=== PATIENT | male | born 1945 | race Caucasian/White ===

== ENCOUNTER 2016-07-07 18:40 | Emergency (ER) | payer OTHER ==
[~2016-07-07] VITALS: Ht 175.3 cm; Wt 83.9 kg
[2016-07-07 18:40] VITALS: BP 164/95
[~2016-07-07 18:40] MED LIST: ADALAT CC60 MG PO; FENTANYL 1100 MCG/HR TRANSDERM; GEMFIBROZIL 60600 MG PO; LOVASTAT20 PO; OMEPRAZOLE20 M2 PO; PERCOCET 5-3251 EACH PO
== END 2016-07-07 20:13 | disposition home or self-care (01) ==
LOC: ER 18:40
DX: S61.411A Laceration without foreign body of right hand, initial encounter (principal); E78.00 Pure hypercholesterolemia, unspecified; I10 Essential (primary) hypertension; K21.9 Gastro-esophageal reflux disease without esophagitis; G89.29 Other chronic pain; I48.91 Unspecified atrial fibrillation; F17.210 Nicotine dependence, cigarettes, uncomplicated; Z98.890 Other specified postprocedural states; Z88.6 Allergy status to analgesic agent; W24.0XXA Contact with lifting devices, not elsewhere classified, initial encounter; Y93.89 Activity, other specified; Y92.89 Other specified places as the place of occurrence of the external cause; Y99.8 Other external cause status

== ENCOUNTER 2016-09-08 18:09 | Emergency (ER) | payer OTHER ==
[~2016-09-08] VITALS: Ht 175.3 cm; Wt 83.9 kg
--- NOTE | ~2016-09-08 | EKG ---
[place] [address] [facility] [place] [address] ELECTROCARDIOGRAM REPORT Name: LEYDA DUVALL [facility] #: [id number] Admission: 09/08/16 Attend Phys: Discharge: 09/08/16 Date of : 47 Report #: [id number] THIS REPORT FOR: //name// 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: : 1945 Requested By: Chris Jamison Order Number: [id number] MD: Jamie Fernandez Measurements Intervals [place] Rate: 65 P: 42 HI: 179 QRS: -12 QRSD: 94 T: 25 QT: 405 QTc: 422 Interpretive Statements Sinus rhythm Low voltage, extremity leads Compared to ECG 03/10/2011 10:38:17 Atrial fibrillation no longer present ST (T wave) deviation no longer present Electronically Signed On 09-09-2016 14:15:03 CDT by Jamie Fernandez [email or web address] <ELECTRONICALLY SIGNED> By: Jamie Fernandez MD 09/09/16 1415 1812 11 MD BONITA Medina
[2016-09-08 18:55] LABS: ABSOLUTE NEUTROPHILS 4.4 thou/uL (1.4-8.2); BASOPHILS 1.3 % (0.0-2.0); EOSINOPHILS 7.3 % (0.0-3.0); HEMATOCRIT 35.1 % (42.0-52.0); LYMPHOCYTES 32.9 % (24.0-44.0); MCH 32.5 pg (26.0-34.0); MCHC 34.3 g/dL (28.0-37.0); MCV 94.6 fL (80.0-100.0); MONOCYTES 11.9 % (1.0-8.0); PLATELET COUNT 247 thou/uL (150-400); POLYS 46.6 % (36.0-66.0); RBC 3.71 mil/uL (4.50-6.00); RDW 14.2 % (10.5-14.5); WBC 9.4 thou/uL (4.0-11.0)
[2016-09-08 18:56] LABS: MANUAL DIFF NO
[2016-09-08 19:03] LABS: ANION GAP 10 mmol/L (7-16); BUN 19 mg/dL (7-18); CHLORIDE 102 mmol/L (98-107); CO2 25 mmol/L (21-32); GLUCOSE 96 mg/dL (74-106); POTASSIUM 3.5 mmol/L (3.5-5.1); SODIUM 137 mmol/L (136-145)
[2016-09-08 19:17] LABS: NT-PRO BRAIN NAT PEPTIDE 118 pg/mL (<300); TROPONIN-I < 0.04 ng/mL (<0.04-0.07)
[2016-09-08] MEDS ORDERED: NORFLEX100 MG PO (21:16)
[2016-09-08 21:25] VITALS: BP 138/79
== END 2016-09-08 21:25 | disposition home or self-care (01) ==
LOC: ER 18:09
PROVIDERS: Emergency Medicine
DX: R07.89 Other chest pain (principal); E78.00 Pure hypercholesterolemia, unspecified; I10 Essential (primary) hypertension; K21.9 Gastro-esophageal reflux disease without esophagitis; I48.91 Unspecified atrial fibrillation; F17.210 Nicotine dependence, cigarettes, uncomplicated; Z98.890 Other specified postprocedural states; Z88.6 Allergy status to analgesic agent

== ENCOUNTER → 2017-04-16 | Outpatient (CLI) | payer OTHER ==
[~2017-04-16] MED LIST changes: +NORFLEX100 MG PO
== END ==
LOC: RAD 11:22
DX: M79.605 Pain in left leg (principal); M79.604 Pain in right leg; R60.0 Localized edema

== ENCOUNTER → 2018-04-23 | Outpatient (CLI) | payer OTHER | LOC: RAD 10:37 | DX: M48.07 Spinal stenosis, lumbosacral region (principal); R51 Headache; W19.XXXA Unspecified fall, initial encounter ==

== ENCOUNTER 2020-03-04 14:09 | Emergency (ER) | payer OTHER ==
[~2020-03-04] VITALS: Ht 177.8 cm; Wt 86.2 kg
[2020-03-04] MEDS ORDERED: ROBAXIN 750 MG750 MG PO (15:21)
[2020-03-04 15:46] VITALS: BP 152/88
== END 2020-03-04 15:46 | disposition home or self-care (01) ==
LOC: ER 14:09
DX: G89.29 Other chronic pain (principal); M54.9 Dorsalgia, unspecified; E78.00 Pure hypercholesterolemia, unspecified; I10 Essential (primary) hypertension; K21.9 Gastro-esophageal reflux disease without esophagitis; I48.91 Unspecified atrial fibrillation; F17.210 Nicotine dependence, cigarettes, uncomplicated; Z98.890 Other specified postprocedural states; Z79.899 Other long term (current) drug therapy; Z88.8 Allergy status to other drugs, medicaments and biological substances

== ENCOUNTER → 2020-09-15 | Outpatient (CLI) | payer OTHER ==
[~2020-09-15] MED LIST changes: +ROBAXIN 750 MG750 MG PO
== END ==
LOC: RAD 12:23
PROVIDERS: ATTEND Family Medicine
DX: J44.9 Chronic obstructive pulmonary disease, unspecified (principal)

== ENCOUNTER 2020-10-14 13:05 | Inpatient (IN) | payer OTHER ==
[~2020-10-14] VITALS: Ht 182.9 cm; Wt 93.0 kg
--- NOTE | ~2020-10-14 | O ---
[facility] [place] [address] OPERATIVE REPORT Name: LEYDA DUVALL Room #: 442-P [facility] IN M.R.#: [id number] Admission: 10/14/20 Attend Phys: Juan Jeronimo Mackenzie Discharge: Date of : 47 Report #: [id number] THIS REPORT FOR: cc: Jeramy Rincon MD, Rene P. MD Kneidel, Matthew T. MD ~ DATE OF SERVICE: 10/15/2020 PREOPERATIVE DIAGNOSIS: Right femoral neck fracture. POSTOPERATIVE DIAGNOSIS: Right femoral neck fracture. PROCEDURE: Right hip hemiarthroplasty. PATTERN CHECKER: Shankar Melissa MD ANESTHESIA: General. ESTIMATED BLOOD LOSS: 200 mL. DRAINS: No drains. TOURNIQUET: No tourniquets. COMPLICATIONS: No complications. DESCRIPTION OF PROCEDURE: The patient was brought to the operating room where he was placed under general anesthesia. Once under adequate general anesthesia, he was placed into a lateral decubitus position on the operative table. The patient's right lower extremity was then prepped and draped in a sterile manner. A 15 cm incision was made along the lateral aspect of the hip. This was dissected down through the soft tissue to the tensor fascia, which was then incised in line with the incision. Exposure of the posterior aspect of the hip was then achieved. Any hematoma was evacuated. The short external rotators were elevated off of the hip joint and the hip fracture was exposed, any hematoma was evacuated from the fracture itself. The femoral head was then removed with a corkscrew extractor and a size 52 mm head was sized and trialled and noted to be satisfactory. A rectangular osteotome was then used to open the femoral canal, which was then opened and reamed and broached to a size 9 cemented stem. Trial components were placed and trial reduction was excellent once complete. The femoral canal was then prepared for cementation. The cement was then placed. A size 9 stem along with a +0 neck and femoral head were then placed into the hip. Satisfactory reduction was then achieved with excellent stability. Again, a 52 mm head was placed. This was from the ePrep system. Excellent reduction was achieved. The wound was then irrigated copiously and closed with #2 FiberWire in the capsular layer, #[address] [address] OPERATIVE REPORT Name: LEYDA DUVALL Room #: 442-P [facility] IN .R.#: [id number] Admission: 10/14/20 Attend Phys: Juan Mann Discharge: Date of : 47 Report #: [id number] repair the piriformis back to its position in the piriformis fossa. The wound was irrigated once again copiously and closed with #1 Vicryl in the tensor fascia, 2-0 Vicryl in subcutaneous tissues and bridgett were used for the skin. The wound was dressed with Xeroform, 4 x 4's, and a sterile soft compressive dressing was placed. There were no complications from the procedure. The patient tolerated the procedure well and was to the recovery room without incident. By: 1229 [id number] Shankar Melissa MD /nt
[2020-10-14 13:07] VITALS: BP 143/72
[2020-10-14 18:24] LABS: URINE BILIRUBIN NEGATIVE (Negative); URINE BLOOD TRACE (Negative); URINE CLARITY CLEAR; URINE COLOR YELLOW; URINE GLUCOSE-RANDOM* NEGATIVE (Negative); URINE KETONES NEGATIVE (Negative); URINE LEUKOCYTES-REFLEX NEGATIVE (Negative); URINE NITRITE-REFLEX NEGATIVE (Negative); URINE PROTEIN (DIPSTICK) 2+ (Negative)
[2020-10-14 18:26] LABS: ABSOLUTE NEUTROPHILS 9.1 thou/uL (1.4-8.2); BASOPHILS 0.5 % (0.0-2.0); EOSINOPHILS 0.2 % (0.0-3.0); HEMOGLOBIN 13.1 gm/dL (14.0-18.0); LYMPHOCYTES 12.5 % (24.0-44.0); MCH 31.9 pg (26.0-34.0); MCHC 32.8 g/dL (28.0-37.0); MCV 97.4 fL (80.0-100.0); MONOCYTES 6.8 % (1.0-8.0); PLATELET COUNT 265 thou/uL (150-400); RBC 4.11 mil/uL (4.50-6.00); RDW 15.3 % (10.5-14.5); WBC 11.4 thou/uL (4.0-11.0)
[2020-10-14 18:32] LABS: CALCIUM 8.7 mg/dL (8.5-10.1); CREATININE 1.2 mg/dL (0.7-1.3); POTASSIUM 3.1 mmol/L (3.5-5.1)
[2020-10-14 18:38] LABS: ALBUMIN 2.2 g/dL (3.4-5.0); TOTAL BILIRUBIN 0.4 mg/dL (0.2-1.0); TOTAL PROTEIN 6.8 g/dL (6.4-8.2)
[2020-10-14 18:40] LABS: BACTERIA-REFLEX None Seen /HPF (None Seen); SQUAMOUS 0-3 Few /LPF (0-3); URINE RBC 1-2 Rare /HPF (NONE SEEN); URINE WBC-REFLEX 0-5 Rare /HPF (0-5)
[2020-10-14 18:42] LABS: APTT 29.1 Seconds (24.5-32.8); INR 1.01
[2020-10-14 19:17] VITALS: BP 144/83
[2020-10-14 20:48] VITALS: BP 145/88
[2020-10-15] VITALS (10 sets, daily range): BP systolic 93–162; BP diastolic 63–99
--- NOTE | 2020-10-15 00:23 | NUR ---
PT ADMITTED TO 442 VIA CART FROM ER AT 1944. PT ALERT AND ORIENTED X 4. PT VERY ANXIOUS. IV INFUSING ORDERED. VOIDING ADEQUATE AMTS CLEAR YELLOW URINE PER URINAL. RIGHT HIP BRUISED. RIGHT WRIST SPLINT INTACT. PT C/O PAIN IN RIGHT HIP. DILAUDID GIVEN AT 2128. PERCOCET GIVEN X 1 WITH PARTIAL PAIN RELIEF VERBALIZED. TRAZADONE GIVEN PER PT REQUEST FOR SLEEP. TELEMETRY SHOWING A-FIB. PT NPO AFTER MIDNIGHT FOR POSSIBLE SURGERY IN AM. PT CHECKED ON HOURLY ROUNDS.
[2020-10-15 01:53] LABS: BASOPHILS 0.2 % (0.0-2.0); EOSINOPHILS 0.4 % (0.0-3.0); HEMATOCRIT 38.2 % (42.0-52.0); HEMOGLOBIN 12.7 gm/dL (14.0-18.0); LYMPHOCYTES 16.4 % (24.0-44.0); MCH 32.3 pg (26.0-34.0); MCHC 33.2 g/dL (28.0-37.0); MCV 97.1 fL (80.0-100.0); MONOCYTES 8.5 % (1.0-8.0); PLATELET COUNT 233 thou/uL (150-400); POLYS 74.5 % (36.0-66.0); RBC 3.94 mil/uL (4.50-6.00); RDW 15.3 % (10.5-14.5); WBC 9.4 thou/uL (4.0-11.0)
[2020-10-15 02:03] LABS: CALCIUM 7.8 mg/dL (8.5-10.1); MAGNESIUM 1.3 mg/dL (1.8-2.4); POTASSIUM 3.4 mmol/L (3.5-5.1)
--- NOTE | 2020-10-15 06:29 | NUR ---
PT IN A-FIB ALL NIGHT. SUSTAINING RATE 100-110. WARROOM MONITOR REPORTED HIGHEST RATE WAS 125. BP 150/92 THIS MORNING. PT ASYMPTOMATIC. EUSEBIA PICKARD NP NOTIFIED WITH NO NEW ORDERS.
[2020-10-15 09:35] LABS: FOLIC ACID 14.2 ng/mL (8.6-58.9)
--- NOTE | 2020-10-15 10:37 | NUR ---
A/O X 3. Room air. Bedbound due to right hip pain. IV LEFT FOREARM saline locked, dressing dry, clean, intact. Has been AFIB on tele. NPO since midnight. Right arm red, small cuts noted, wrapped with kerlix wrist to above elbow. Bruising right hip. Uses Bed tucker. Bm today. Right hip surgery set for 1200 today. Ex Lucrecia at bedside
--- NOTE | 2020-10-15 15:46 | NUR ---
Case opened to follow for dc planning. Manager Call visited with the pt's ex /roommate Lucrecia at bedside. Pt is just returning from recovery after hip sx. The pt was admitted with hip fx due to a fall at home. He lives in a ground level apt with no steps with his exwife Lucrecia. She notes he is normally independent with gait and adl's and is a&ox4. He also fell a couple of days ago going to the mail box and was seen in the ER with no injury. She notes on the days he has fallen he seemed "off" and was having memory issues and balance issues making her concerned that something was going on. He has had both covid vaccines with the 2nd dose of pfizer on 10-06-20. She is also vaccinated. The pt does not drive. She does all the driving and will be able to assist when he comes home. She is open to rehab or snf pending the rehab team recommendations. [facility] eval in progress as well as PT/OT. [facility] will have a bed on Sunday if he is ready and they can accept. The pt does not have any dme, but Lucrecia had an old wobbley rwalker that he used for a few days and a stool riser. He will likely need a rwalker at vt and when he goes home. Will follow.
--- NOTE | 2020-10-15 22:40 | NUR ---
ASSUMED CARE OF PT AT 1900. BEDSIDE REPORT RECIEVED. PT ON TELE C ELEVATED HR. VS RETOOK, BP 130/86, P 114. PT DENIES SOB, DYSPNEA, CHEST PAIN. C/O 09/14 R HIP PAIN. CHARGE NURSE ADMINISTERED IV DILAUDID. ASSESSMENT COMPLETE. ABDOMEN DISTENDED, ACTIVE BS, PT REPORTS BM TODAY. R HIP DRSG CDI, NO HEAT OR SWELLING TO RLE. IVF RUNNING PER ORDER, MEDS ADMINISTERED PER APR. PT REQUESTED COFFEE, EDUCATED PT THAT D/T ELEVATED HR COFFEE IS NOT AN OPTION. ASSISTED PT C REPOSITIONING. CONTINUING TO MONITOR PT AND HEART RHYTHM. CALL LIGHT IN REACH.
--- NOTE | 2020-10-15 22:47 | NUR ---
Upon entering the unit for rounds, Mr. Stark was found to be in afib with a rate 110-130s, blood pressure as charted, pt asymptomatic. RESTAURANT HOST longwall foreman notified, cardizem 10mg bolus and transfer to ordered. Cardizem administered and patient monitored post administration by this nurse. Pt will be transferred to rm 218.
--- NOTE | 2020-10-15 22:58 | NUR ---
REPORT GIVEN TO AMINAH MORALES IN CCU
--- NOTE | 2020-10-16 03:54 | NUR ---
RECEIVED PATIENT A TRANSFER FROM [address] [place] [address]. PATIENT IS AA0X2. PATIENT NOTED TO HAVE ATRIAL FIBRILLATION EVEN AFTER SOUTH ADMINISTERED CARDIZEM IV PUSH. PATIENT STATES THAT HE IS HAVING PAIN IN HIS R HIP WHICH HE HAD SURGERY ON EARLIER TODAY. PT IS FORGETFUL AND ASKS SOME QUESTIONS MULTIPLE TIMES. HE STATES THAT HE DOES NOT FEEL SHORT OF BREATH OR LIGHT HEADED. PULSES ARE STRONG IN BLE. DRESSING TO HIP OS CDI. PATIENT ALSO HAS KERLEX OVER SKIN TEAR TO R FA THAT HE SUFFERED WHEN HE FELL AT HOME. PATIENT STATED THAT THE DRESSING HAS BEEN BLEEDING THROUGH, BUT AT THIS TIME THERE IS NO EVIDENCE OF BLOOD. PATIENT IS EDUCATED ON USE OF CALL LIGHT AND ALL SAFETY PRECAUTIONS ARE INITIATED. RECEIVED AND STARTED INFUSION OF CARDIZEM DRIP PER ORDER. ALL OTHER PATIENT VSS. NO S/S OF DISTRESS NOTED. WILL CONTINUE TO MONITOR.
[2020-10-16 04:14] VITALS: BP 154/94
[2020-10-16 04:18] LABS: HEMATOCRIT 34.8 % (42.0-52.0); HEMOGLOBIN 11.6 gm/dL (14.0-18.0); MCH 32.5 pg (26.0-34.0); MCHC 33.2 g/dL (28.0-37.0); RBC 3.55 mil/uL (4.50-6.00); WBC 11.9 thou/uL (4.0-11.0)
[2020-10-16 08:00] VITALS: BP 141/55
[2020-10-16 11:05] VITALS: BP 126/76
[2020-10-16 20:05] VITALS: BP 135/74
[2020-10-16 23:58] VITALS: BP 131/73
[2020-10-17 03:36] LABS: HEMATOCRIT 33.2 % (42.0-52.0); MCH 32.9 pg (26.0-34.0); MCHC 33.3 g/dL (28.0-37.0); MCV 98.8 fL (80.0-100.0); RBC 3.36 mil/uL (4.50-6.00); RDW 15.1 % (10.5-14.5); WBC 13.4 thou/uL (4.0-11.0)
[2020-10-17 04:07] LABS: MAGNESIUM 2.1 mg/dL (1.8-2.4)
--- NOTE | 2020-10-17 04:42 | NUR ---
RECEIVED THE PATIENT ALERT AND ORIENTED.ON ROOM AIR BREATHING SPONTANEOULSY.WITH DRESSING AT RIGHT HIP C/D/I.NOT IN DISTRESS.HAD COMPLAINTS OF RIGHT HIP PAIN, PAIN MANAGEMENT DONE THROUGHOUT THE SHIFT.ALL NEEDS ATTENDED.
[2020-10-17 05:02] VITALS: BP 126/71
--- NOTE | 2020-10-17 08:18 | HC ---
[facility] [place] [address] [place] [address] CONSULTATION Name: LEYDA DUVALL Room #: 218-P [facility] IN ..#: [id number] Admission: 10/14/20 Attend Phys: Juan Mann Discharge: Date of : 47 Report #: [id number] THIS REPORT FOR: cc: Jeramy Rincon MD, Rene P. MD Deardorff, Valerie A. MD ~ REASON FOR CONSULTATION: Right hip fracture, possible right wrist fracture. HISTORY OF PRESENT ILLNESS: The patient is a 75-year-old male who lives with his in an apartment who reports falling onto his right side a few days ago. He denied loss of consciousness, had significant pain, ambulating with a walker at home and so presented to the Emergency Department. He was then diagnosed with a possible right dorsal triquetral fracture and right displaced subcapital femoral neck fracture. Apparently, he had a fall a week ago, was seen in an outside hospital and then fell again 2 days ago. The most recent fall resulted in significant hip pain. REVIEW OF SYSTEMS: NEUROLOGIC: Denies numbness or tingling. MUSCULOSKELETAL: See HPI. PAST MEDICAL HISTORY: Significant for hypertension, hyperlipidemia, osteoarthritis, atrial fibrillation noted today on exam. PAST SURGICAL HISTORY: Right knee surgery x3, left wrist partial fusion, back surgery, hernia repair. REPORTED HOME MEDICATIONS: Omeprazole, lovastatin, fentanyl patch, oxycodone, gemfibrozil and nifedipine. ALLERGIES: NSAID DRUGS. SOCIAL HISTORY: Smokes 1 pack of cigarettes a day. Alcohol use is negative. He lives with his who has COPD. 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 LABORATORY STUDIES: Done on 10/15/2020 show white blood cell count 9.4, hemoglobin 12.7, hematocrit 38.2, platelet count is 233. INR is 1. Chemistry shows abnormals include a potassium is low at 3.4, calcium is low at 7.8, magnesium of 1.3, albumin is 2.2 and low. COVID test is negative. PHYSICAL EXAMINATION: GENERAL: The patient is alert and oriented, interacts appropriately. He is a well-developed, well-nourished male in no acute distress. He is lying in his hospital bed. [address] [address] CONSULTATION Name: LEYDA DUVALL Room #: [address] [place] [address] IN ..#: [id number] Admission: 10/14/20 Attend Phys: Juan Mann Discharge: Date of : 47 Report #: [id number] VITAL SIGNS: Most recent vital signs show a heart rate of 100, respiration rate 19, blood pressure 150/92, pulse oximetry is 95% on room air. EXTREMITIES: Examination of his right upper extremity, he has some mild and older appearing abrasions on the proximal forearm. He has a moderate amount of diffuse bruising, minimal diffuse edema in the right wrist and forearm. He has a mild tenderness at the radiocarpal joint dorsally. None at the dorsal triquetrum. There is no focal swelling of the dorsal triquetrum. There is some mild distal radius tenderness. He moves his wrist without significant pain. He moves his entire right upper extremity without significant pain. There is no other tenderness. Grossly normal motor and sensory intact. No other tenderness to palpation. Left upper extremity exam grossly normal motor and sensory exam. He is able to make a fist, moves his left lower extremity without pain. Skin is clean, dry and intact. There is no tenderness to palpation throughout. Right lower extremity exam shows a moderate joint effusion with diffuse tenderness there. He is grossly normal, motor and sensory is intact. Skin is clean, dry and intact. There is pain with attempted hip range of motion. There is no tenderness to palpation to the ankle or foot. Left lower extremity examination: Sensation and motor are grossly intact. Skin is clean, dry and intact. No pain with range of motion of left lower extremity. RADIOGRAPHS: Three views of the right hand, forearm, knee, ankle and foot were all reviewed by myself as well as the reports were reviewed. Diffuse arthrosis was noted with respect to the wrist. He has a significant amount of arthrosis in the mid carpal space as well as chondrocalcinosis. I am not localizing a dorsal triquetral fragment. AP and lateral of the right hip show displaced subcapital femoral neck fracture. IMPRESSION AND PLAN: 1. Report of a possible dorsal triquetral fracture in the wrist. The patient does not clinically appear to have any symptoms related to a possible fragment and he reports the wrist is not significantly painful and actually the brace is bothering him and so I advised him to wear the brace only as needed. We can certainly follow him and if he develops more wrist pain, evaluate this further. 2. Right subcapital femoral neck fracture. I have discussed this patient with my partner, Dr. Shankar Melissa. He will plan to do the surgery later this afternoon. We discussed the risks, the typical procedure as well as postoperative course. The risks, benefits, alternatives and complications were discussed including but not limited to infection, damage to vessels or nerves, bone not healing, dislocation, decreased ambulatory level. I discussed with [facility] [address] [place] [address] CONSULTATION Name: LEYDA DUVALL Room #: 218-P ADM [place] ..#: [id number] Admission: 10/14/20 Attend Phys: Juan Mann Discharge: Date of : 47 Report #: [id number] Yeseniadel. We will also go through the risks as well. Right knee pain with negative x-rays. We will discuss with Dr. Melissa. Thank you very much for allowing me to participate in the care of this patient. <ELECTRONICALLY SIGNED> By: Ashlie Hackett MD 10/17/2018 0643 0736 Ashlie Hackett MD /nt
[2020-10-17 08:40] VITALS: BP 139/82
[2020-10-17 12:30] VITALS: BP 127/60
[2020-10-17 14:56] VITALS: BP 129/77
--- NOTE | 2020-10-17 15:56 | NUR ---
PT TRANSFERRED TO 4S. HAS HAD 2 BM TODAY. PAIN NOT WELL CONTROLLED WITH NORCO. HYDROMORPHINE ADMINISTERED.
--- NOTE | 2020-10-17 17:26 | NUR ---
Pt transferred to unit from . C/o rt hip pain. Prn pain medicine administered. VSS. Worked with physical therapy. Call light within reach. Fall precautions in place. Will continue to monitor.
[2020-10-17 19:27] VITALS: BP 123/83
--- NOTE | 2020-10-17 23:28 | NUR ---
ASSESSMENT COMPLETED. PT IS VERY RESTLESS, CALLING FOR DIFFERENT THINGS. HE IS ALSO C/O PAIN AND WANTS THE "SHOT". PAIN MEDS EDUCATION PROVIDED. PT GIVEN PRN TRAZODONE BUT SEEMS NOT TO BE TAKING EFFECT YET. HE HAS BEEN GIVEN SOME FOOD TOO. PT IS WIDE AWAKE. HE DOES NOT SEEM TO BE IN ANY DISTRESS. GOOD CSM TO RIGHT FOOT. VOIDING PER URINAL, DRSG TO R HIP IS C/D/I. SCDS IN PLACE. FALL PREC IN PLACE, CALL LIGHT WITHIN REACH.
[2020-10-18 03:51] VITALS: BP 131/84
[2020-10-18 07:40] VITALS: BP 133/85
[2020-10-18] MEDS ORDERED: ELIQUIS5 MG PO (10:08)
[2020-10-18] MEDS ORDERED: CARDIZEM CD 18180 M3 PO (10:09)
--- NOTE | 2020-10-18 10:43 | NUR ---
Assumed care of pt at 0700. Pt a&ox4. Forgetful at times. Dressing c/d/i. C/o rt hip pain. Prn pain medications administered. NWB on RLE. Pt worked with physical therapy this am. Up to the chair. Call light within reach. Fall precautions in place. Will continue to monitor.
--- NOTE | 2020-10-18 11:13 | NUR ---
[facility] CONSULT COMPLETED BY JUSTNI MONDRAGON NP. Pt REFUSING REHAB HOWEVER AND THIS MATERIALS BUYER SPOKE W/ Pt REGARDING REHAB RECOMMENDATION. Pt STILL REFUSING REHAB AND WANTS TO GO DIRECTLY HOME. UDPATED CASE MGMT. THANK YOU FOR THIS REFERRAL.
[2020-10-18 12:00] VITALS: BP 131/82
--- NOTE | 2020-10-18 13:51 | NUR ---
SPOKE W/ Pt AGAIN LATE MORNING WELL AND DTR AND ALL PARTIES AGREEABLE W/ 5[facility] ACUTE REHAB. ALL QUESTIONS ANSWERED. PLAN FOR ADMISSION TO [facility] LATER TODAY. BROCHURE GIVEN TO Pt AND FAMILY.
== END 2020-10-18 15:11 | DRG 521 ==
LOC: ER 13:05 → EROBS 19:09 → 4S 19:09 → 2N 10-15 23:41 → 4S 10-17 14:40
PROVIDERS: Nurse Practitioner; Orthopaedic Surgery Foot and Ankle Surgery; Physician Assistant; ADMIT Hospitalist; ATTEND Hospitalist
PROC: 0SRR019 Replacement of Right Hip Joint, Femoral Surface with Metal Synthetic Substitute, Cemented, Open Approach (ICD-10-PCS; principal; 2020-10-15)
DX: S72.011A Unspecified intracapsular fracture of right femur, initial encounter for closed fracture (principal); E43 Unspecified severe protein-calorie malnutrition; Z20.822 Contact with and (suspected) exposure to COVID-19; E78.00 Pure hypercholesterolemia, unspecified; I10 Essential (primary) hypertension; K21.9 Gastro-esophageal reflux disease without esophagitis; G89.29 Other chronic pain; M54.9 Dorsalgia, unspecified; E78.5 Hyperlipidemia, unspecified; F17.210 Nicotine dependence, cigarettes, uncomplicated; I48.0 Paroxysmal atrial fibrillation; R53.81 Other malaise; E83.42 Hypomagnesemia; N40.0 Benign prostatic hyperplasia without lower urinary tract symptoms; K59.00 Constipation, unspecified; S09.90XA Unspecified injury of head, initial encounter; S40.811A Abrasion of right upper arm, initial encounter; I49.8 Other specified cardiac arrhythmias; Z71.6 Tobacco abuse counseling; Z88.8 Allergy status to other drugs, medicaments and biological substances; Z79.899 Other long term (current) drug therapy; Z47.89 Encounter for other orthopedic aftercare; W18.39XA Other fall on same level, initial encounter; Y93.89 Activity, other specified; Y92.89 Other specified places as the place of occurrence of the external cause; Y99.8 Other external cause status
CPT/HCPCS: 10081; 10100; 50010; 50101; 50382; 50414; 51057; 51130; 51225; 51226; 51412; 53000; 56525; 56530; 56531; 57103; 57117; 62110; 62900; 70005

== ENCOUNTER 2020-10-18 11:53 | Inpatient (IN) | payer OTHER ==
[~2020-10-18] VITALS: Ht 177.8 cm; Wt 90.3 kg
[~2020-10-18 11:53] MED LIST changes: +CARDIZEM CD 18180 M3 PO; +ELIQUIS5 MG PO
--- NOTE | 2020-10-18 16:00 | NUR ---
1500 ADMITTED TO ROOM 516. PATIENT IS ALERT AND ORIENTED X4, BUT IS FORGETFUL AT TIMES. PATIENT BILLINGS'S, CUSTOM FRAME ASSEMBLER ARE EQUAL. LUNGS ARE CLEAR AND DEMINISHED. ABD IS SOFT WITH BSX4. PATIENT HAD BM TODAY. PATIENT HAS S.L. IN HIS LEFT FORARM. PATIENT HAS SKIN TEAR ON HIS RIGHT FORARM. RIGTH HIP DRESSING IS DRY AND INTACT. PATIENT HAS KRISTIN HOSE ON. FALL AND SAFETY PROTOCOLS IN PLACE. DENIES PAIN AT THIS TIME. CALL LIGHT IN REACH. PT/OT/ST JOSELINEALS TO BE DONE IN A.M. PATIENT IS UP WITH ASSIST OF 2 STAFF TO TRANSFER FROM W/C TO BED. CONSENTS SIGNED. WILL CONTINUE TO MONITER.
--- NOTE | 2020-10-18 16:26 | NUR ---
DISCHARGE NOTE: MARY KATE reviewed chart and spoke with nursing and attending physician. Pt is medically stable for discharge today. SW discussed with [facility] rehab office coordinator, who states that they are able to accept pt today. Pt stated that he would prefer to go home today. Attending physician met with pt and now the plan is for pt to discharge to 5N. MARY KATE updated [facility] rehab office coordinator. Pt is able to have a walker delivered by [facility] liaison, once discharged. Discharge orders completed. Pt discharged to 5[facility] earlier today. Rehab CM to follow and assist as needed with discharge planning.
[2020-10-18 19:00] VITALS: BP 133/69
--- NOTE | 2020-10-19 03:17 | NUR ---
assumed care approx 1899 evening 10/18. pt awake and alert at change of shift, very anxious and restless and forgetful calling out multiple times repeating the same questions. pt given pain med approx 2014 and also muscle relaxant. pt started calling out again approx 2114 for more pain med. advised pt he had just been given an hour ago and pt became very upset stating that could not be true and he wanted pain medicine again at that time. pt continued to remain anxious almost in a manic state. ABA THERAPIST paged and order recd for Atarax - one time order and Trazadone prn. Both meds given to pt and so far this night pt has been sleeping and not called out further for pain med. pt voided per urinal once so far and now back to sleep. bed alarm on and call light in reach. will continue to monitor.
[2020-10-19 05:51] LABS: HEMATOCRIT 33.6 % (42.0-52.0); MCH 32.2 pg (26.0-34.0); MCHC 32.7 g/dL (28.0-37.0); MCV 98.5 fL (80.0-100.0); RBC 3.42 mil/uL (4.50-6.00); RDW 15.4 % (10.5-14.5); WBC 6.9 thou/uL (4.0-11.0)
[2020-10-19 06:30] LABS: CALCIUM 8.5 mg/dL (8.5-10.1); CREATININE 1.2 mg/dL (0.7-1.3); POTASSIUM 3.8 mmol/L (3.5-5.1)
[2020-10-19 07:15] VITALS: BP 137/88
--- NOTE | 2020-10-19 07:57 | NUR ---
Chart review, He lives in an apartment, lower level of his ex-/friend home. Normal he is independent with ADL's, manage own medication and has roller walker that does not function properly. Walker was another family members. No longer drives, his ex- drives. No rehab in the past. PCP Dr Rincon. Will cont. following as needed for dc needs.
--- NOTE | 2020-10-19 08:11 | NUR ---
ASSUMED CARE AT 0700. PATIENT IS ALERT AND ORIENTED X4, BUT FORGETFUL. PATIENT BILLINGS'S, DISTRIBUTION TECH ARE EQUAL. LUNGS ARE CLEAR. ABD IS SOFT WITH BSX4. VOIDS AVELINA COLORED URINE PER URINAL. PATIENT HAS RIGHT HIP DRESSING THAT IS DRY AND INTACT. PATIENT HAS RIGHT FORARM S.T. WILL HAVE WOUND CARE TEAM EVALUATE. ENOURAGED I.S. AND PO FLUIDS. FALL AND SAFETY PROTOCOLS IN PLACE. C/O BACK PAIN AND RIGHT HIP PAIN. MEDICATED WITH PRN PAIN MED, AND MUSCLE RELAXANTS. CONTINUES TO PROGRESS SLOWLY TOWARDS D/C GOALS. IV IN LEFT FORARM IS PATENT AND INTACT. WILL CONTINUE TO MONITER.
--- NOTE | 2020-10-19 12:28 | NUR ---
RD consult. Admit to rehab s/p hip fracture. On regular diet, eating >85% of meals and states enjoys the meals. No significant wt changes. Dislikes Ensure supplement-will dc. Low nutrition risk
--- NOTE | 2020-10-19 13:05 | NUR ---
Team meeting, recommendation: remind him of hip precaution, mod to severe cognition and memory. Ex- was helping with medication and finances prior to hospital. right arm skin from fall outside hospital. wound care and ortho consult. will need fww. HH ( pt, ot, st, nursing). Therapy to work with ex- training prior to dc on 10/28
[2020-10-19 20:08] VITALS: BP 138/101
[2020-10-19 20:30] VITALS: BP 132/82
--- NOTE | 2020-10-20 04:34 | NUR ---
ASSUMED CARE AT 1900 OF 10/19. PATIENT IS A&OX4, CAN BE FORGETFUL AT TIMES. REPORTS RIGHT HIP PAIN, WHICH IS MANAGED WITH PRN OXYCODONE AND TYLENOL. RIGHT HIP DRESSING CDI. ASSISTED WITH REPOSITIONING IN BED. APPEAR TO BE SLEEPING DURING HOURLY ROUNDS, FALL PRECAUTIONS IN PLACE, CALL LIGHT WITHIN REACH. WILL CONTINUE TO MONITOR.
[2020-10-20 07:15] VITALS: BP 141/91
--- NOTE | 2020-10-20 07:42 | NUR ---
WOUND CONSULT; THE PATIENTS RIGHT FORARM WAS ASSESSED. THE FORARM HAS A SMALL BRUISE AND HAS SEVERAL STABLE SCABBED AREAS WITH NO ERYTHEMA. NO DRAINAGE. THE PATIENT IS A GOOD HISTORIAN. THE RIGHT HIP DRESSING IS BEING MANGED BY THE SURGEON. THERE IS YELLOW DRAINAGE PRESENT. RECOMMENDATIONS; -PAINT WITH BETADINE DAILY LEAVE SAWMILL MOULDER OPERATOR -NO NEED TO CONTINUE TO FOLLOW UNLESS A NEED ARISES. DISCUSSED WITH DR PARSONS AND RN TODAY.
--- NOTE | 2020-10-20 10:39 | NUR ---
ASSUMED CARE AT 0700. PATIENT IS ALERT AND ORIENTED X4. PATIENT BILLINGS'S, HERITAGE CONSULTANT ARE EQUAL. PATENT LUNGS ARE CLEAR AND DEMINISHED. ABD IS SOFT WITH BSX4. PATINET IS UP WITH P.T. TO AMBULATE TO THE BATHROOM TO VOID AVELINA COLORED URINE. LAXATIVES GIVEN PER REQUEST. PATIENT HAS SKIN TEAR TO LEFT FORARM FROM FALL AT HOME. DRESSING D/C'D. PAINT WITH BETADINE ONLY AND LEAVE OPEN TO AIR. RIGHT HIP DRESSISNG CHANGED ACCORDING TO PROTOCOL. UP WITH WALKER WITH GAIT BELT AND ASSIST OF 1 STAFF. UP IN THE CHAIR FOR BREAKFAST. FALL AND SAFETY PROTOCOLS IN PLACE. C/O LOW BACK PAIN. MEDICATED WITH PRN PAIN MED. CONTINUES TO PROGRESS TOWARDS D/C GOALS SLOWLY. S.L. DC'D. WILL CONTINUE TO MONITER
--- NOTE | 2020-10-20 11:47 | NUR ---
Called left message with ex- homero requested call back. Will cont following as needed for dc needs.
[2020-10-20 19:28] VITALS: BP 132/90
--- NOTE | 2020-10-21 03:39 | NUR ---
assumed care approx 1899 evening 10/20. pt lying in bed dozing off and on at change of shift. pt voiding per urinal. pt pleasant and cooperative stating he was very tired from therapy. pt given hs meds with water tolerating well. dressing intact to right hip. bed alarm on and call light in reach. will continue to monitor.
[2020-10-21 08:38] VITALS: BP 123/72
[2020-10-21 09:00] VITALS: BP 144/85
[2020-10-21 19:36] VITALS: BP 133/71
--- NOTE | 2020-10-21 23:35 | NUR ---
PT ALERT AND ORIENTED X 4, FORGETFUL. RIGHT HIP DRESSING CHANGED LAST EVENING FOR LARGE AMT SEROSANGUINOUS DRAINAGE. PT TOOK HS MEDS WITH WATER WITHOUT DIFFICULTY. PT C/O PAIN IN RIGHT HIP WITH MOVEMENT. ROBAXIN GIVEN AT HS. PT APPEARS TO BE SLEEPING ON HOURLY ROUNDS. BED ALARM ON FOR SAFETY.
[2020-10-22 08:30] VITALS: BP 124/74
[2020-10-22 09:15] VITALS: BP 124/74
--- NOTE | 2020-10-22 09:42 | NUR ---
Cm called ex- Lucrecia, education on recommendation from team meeting this week. Education on training with therapy and she stopped cm in the middle of education. I told everyone, i cannot do any physical assist. I am on oxygen, and he must be able to get round himself, dress himself and he wanted a wheelchair, he cannot come home in wheelchair because i will never get him out of wheelchair. I can talk with therapy. I cannot provide any physical assistance per Lucrecia. CM passed on information to therapy team. Will cont following as needed for dc needs.
--- NOTE | 2020-10-22 14:31 | NUR ---
I have reviewed the documentation by Peg Jaeger from 10/22/20 to 10/22/20 and I concur with it. BRENDA XIE
[2020-10-22 19:13] VITALS: BP 123/81
--- NOTE | 2020-10-23 00:25 | NUR ---
PT ALERT AND ORIENTED X 4, FORGETFUL. SLEEPING IN RECLINER TONIGHT. PT TAKES MEDS WITH WATER WITHOUT DIFFICULTY. PT C/O PAIN IN RIGHT HIP. OXYCODONE GIVEN ORDERED. CHAIR ALARM ON FOR SAFETY. PT APPEARS TO BE SLEEPING ON HOURLY ROUNDS.
[2020-10-23 07:40] VITALS: BP 137/87
[2020-10-23 08:58] VITALS: BP 137/80
--- NOTE | 2020-10-23 14:05 | NUR ---
I have reviewed the documentation by Peg Jaeger from 10/23/20 to 10/23/20 and I concur with it. BRENDA XIE
--- NOTE | 2020-10-24 04:59 | NUR ---
RECEIVED CARE OF THIS PATIENT [id number]. C/O PAIN Q4HR, MED GIVEN. PATIENT ALERT AND ORIENTED X4 WITH FORGETFULNESS. IS CONFUSED AT TIMES. SOMETIMES SEEMS LIKE HE IS MORE CONFUSED THAN OTHER TIMES. DRESSING ON R HIP D/I. UP TO BATHROOM WITH ASSIST OF ONE, GAIT BELT AND WALKER. HAS VOIDED X3 THIS SHIFT.SLEPT OFF AND ON DURING NIGHT.
[2020-10-24 07:15] VITALS: BP 126/79
--- NOTE | 2020-10-24 16:56 | NUR ---
A/O, calm and cooperative. complained of pain in hip, pain medication given and worked. no nausea or vomiting. surgical site dressing checked, dry. lab reviewed.
[2020-10-24 19:54] VITALS: BP 136/72
[2020-10-25 05:28] LABS: ABSOLUTE NEUTROPHILS 4.9 thou/uL (1.4-8.2); EOSINOPHILS 4.3 % (0.0-3.0); HEMATOCRIT 32.3 % (42.0-52.0); HEMOGLOBIN 10.6 gm/dL (14.0-18.0); LYMPHOCYTES 15.1 % (24.0-44.0); MCH 32.2 pg (26.0-34.0); MCHC 32.8 g/dL (28.0-37.0); MCV 98.1 fL (80.0-100.0); MONOCYTES 17.6 % (1.0-8.0); PLATELET COUNT 451 thou/uL (150-400); RDW 14.9 % (10.5-14.5)
--- NOTE | 2020-10-25 05:28 | NUR ---
ASSUME CARE 1900. PT/VITALS STABLE. INTERMITTENT PAIN INDICATED WITH MODERATE RELIEF FROM PAIN MEDS. MODERATE TOLERANCE TO ACTIVITY. ASSESSMENT CHARTED. PROGRESSING WELL TOWARDS POC. INCISION SITE RIGHT HIP WELL APPROXIMATED WITH ROMY INTACT. DRESSING SATURATED/SEROUS DRAINAGE NOTED AT START OF SHIFT. DRESSING CHANGED. NOW CDI. PLAN IS TO CONTINUE TO MONITOR HEALING, MANAGE PAIN, AND INCREASE PHYSICAL ACTIVITY. WILL CONTINUE TO MONITOR AND FOLLOW WITH POC
[2020-10-25 05:43] LABS: CALCIUM 8.6 mg/dL (8.5-10.1); MAGNESIUM 1.6 mg/dL (1.8-2.4); POTASSIUM 3.7 mmol/L (3.5-5.1)
[2020-10-25 19:09] VITALS: BP 132/65
--- NOTE | 2020-10-25 19:41 | NUR ---
PT'S R HIP DRESSING SATURATED WITH SEROUS DRAINAGE. ROMY REMAIN INTACT, INCISION APPROXIMATED. DRESSING CHANGED. LAUREN WOUND AREA FRAGILE APPARENTLY DUE TO TAPE, TWO OPENINGS NOTED. AREA CLEANSED WITH NSS. INCISION COVERED WITH POST OP DRESSING AND ABG, PAPER TAPE USED AND OPEN AREAS NOT TOUCHED BY TAPE.
--- NOTE | 2020-10-26 00:19 | NUR ---
PT ALERT AND ORIENTED X 4. RIGHT HIP DRESSING C/D/I. PT TAKES MEDS WITH WATER WITHOUT DIFFICULTY. PT C/O PAIN IN RIGHT HIP. OXYCODONE GIVEN ORDERED. BED ALARM ON FOR SAFETY. PT APPEARS TO BE SLEEPING ON HOURLY ROUNDS.
[2020-10-26 08:05] VITALS: BP 148/76
--- NOTE | 2020-10-26 09:04 | NUR ---
PT LYING IN BED, PT STATED PAIN TO RT HIP IS 10 ON 1-10 SCALE. PT HAS SOME SERIOSANGIOUS DRAINAGE TO UPPER PART OF HIP FROM WHERE TAPE WAS TAKEN OFF. PT INCISION IS WELL APPROXIMATED WITH ROMY INTACT. PT UP WITH WALKER WITH STAND-BY ASSIST. PT LUNGS CLEAR. THIGH HIGH KRISTIN YEE APPLIED THIS AM. PT STATED THAT HIS LEGS FELT BETTER. PT HAS LEGS ELEVATED WHILE IN BED.
--- NOTE | 2020-10-26 11:04 | H ---
[facility] [place] [address] [place] [address] HISTORY AND PHYSICAL Name: LEYDA DUVALL Room #: 516-1 ADM IN M.R.#: [id number] Admission: 10/18/20 Attend Phys: Rafa Calle MD Discharge: Date of : 47 Report #: [id number] THIS REPORT FOR: cc: Jeramy Rincon MD, Rene P. MD Smithson,Rafa Sheth MD ~ DATE OF SERVICE: 10/18/2020 HISTORY OF PRESENT ILLNESS: The patient has been admitted for acute in-hospital inpatient rehabilitation. He originally had 2 falls at home, had the onset of acute right hip pain and was originally admitted on 10/14/2020. CT of the head was negative for any acute process. Hip pain imaging revealed a right femoral neck fracture and he underwent a right hip hemiarthroplasty. He does have multiple medical comorbidities as noted below. He has significant functional mobility and ADL deficits and has now been admitted for acute in-hospital inpatient rehabilitation. PAST MEDICAL HISTORY: Please see the history and physical documentation. MEDICATIONS: Per the MAR. ALLERGIES: NONSTEROIDALS apparently caused GI upset. SOCIAL HISTORY: Lives in a ground level apartment with his ex-. No steps, premorbidly utilized a cane. His is retired, but she has COPD and has had prior hip and knee surgeries. REVIEW OF SYSTEMS: Please see the full 14-point review of systems as documented. PHYSICAL EXAMINATION: GENERAL: He was pleasant, alert, a little tangential, but follows basic commands. His ex- tends to focus him back on the topic. He is pleasant, follows basic commands without difficulty. HEENT: Appeared benign. Facies are symmetric. CHEST: Sounded clear to auscultation. CARDIAC: Regular rate and rhythm. ABDOMEN: Obese. Bowel sounds positive, nontender. GENITOURINARY AND RECTAL: Deferred. EXTREMITIES: Right hip dressing was noted to be clean, dry and intact. There is no focal calf swelling. He does need assistance with basic sit to stand and is at a min assist. He does have some decreased insight. Tone otherwise appeared to be intact. No significant distal lower extremity edema. ASSESSMENT: A 75-year-old male with the following problem list: 1. Right femoral neck fracture, status post hemiarthroplasty, 10/15/2020. [address] [address] HISTORY AND PHYSICAL Name: LEYDA DUVALL Room #: 516-1 ADM IN ..#: [id number] Admission: 10/18/20 Attend Phys: Rafa Calle MD Discharge: Date of : 47 Report #: [id number] 2. Fall with closed head injury reported. 3. Right arm abrasions, status post fall. His right arm does have some Kerlix wrapping in place. 4. Chronic back pain. 5. Atrial fibrillation. 6. Tobacco abuse. 7. Hyperlipidemia. PLAN: The patient has been admitted for acute in-hospital inpatient rehabilitation. Please see the history and physical documentation. Agree with the documentation as noted. Please see the above noted previous and current functional status. As far as risk of complications, he does have the multiple medical comorbidities as noted above. Initial plan of care involves the interdisciplinary acute inpatient rehabilitation program with the goal of maximizing his functional independence, so he can hopefully return back to the prior living situation. Prognosis is reasonably good with estimated length of stay, probably around 10-14 days. Potential barriers would include the patient's multiple medical comorbidities and decreased functional status. The patient meets diagnostic criteria for an acute in-hospital inpatient rehabilitation stay. He meets the medical necessity criteria and we will have the regional sales consultant physicians continue to follow. He does have the tolerance for therapies and has appropriate discharge goals back to the home setting. <ELECTRONICALLY SIGNED> By: Rafa Calle MD 10/26/20 1104 1113 [id number] Rafa Calle MD /nt
--- NOTE | 2020-10-26 11:04 | PLAN ---
[facility] [place] [address] [place] [address] REHAB UNIT PLAN OF CARE Name: LEYDA DUVALL Room #: 516-1 ADM IN M.R.#: [id number] Admission: 10/18/20 Attend Phys: Rafa Calle MD Discharge: Date of : 47 Report #: [id number] THIS REPORT FOR: cc: Jeramy Rincon MD, Rene P. MD Smithson,Rafa Sheth MD ~ DATE OF SERVICE: 10/20/2020 PROGRESS NOTE/OVERALL PLAN OF CARE HISTORY OF PRESENT ILLNESS: The patient was seen back today in followup. He is in no distress. Last recorded temperature 98.1, pulse 95, respirations 19, blood pressure 132/82. He is alert, follows basic commands without difficulty. His right hip is dressed. Wound care is also following regarding a skin tear of his upper extremity. Functionally, he has been working in therapies with transfers, min assist, gait, min assist 30 feet with a front-wheeled walker. He is allowed weightbearing as tolerated. Lower body dressing is moderate assistance with upper body dressing supervision. In speech, he does have moderate to severe cognitive deficits with severe memory deficits. He is pleasant and oriented, appears to have a decent appetite. When I saw him, eating breakfast this morning. ASSESSMENT: 1. Right femoral neck fracture status post hemiarthroplasty on 10/15/2000. 2. Fall with closed head injury reported. 3. Right arm abrasions, status post fall. 4. Chronic back pain. 5. Atrial fibrillation. 6. Tobacco abuse. 7. Hyperlipidemia. PLAN: The overall plan of care is based on the pre-admit screen and information garnered from therapy assessments. 1. Estimated length of stay is probably around 10-14 days pending progress. 2. Medical prognosis is reasonably good. 3. Anticipated interventions includes the interdisciplinary acute inpatient rehabilitation program. 4. Anticipated functional outcomes would be for the patient to become modified independent with transfers, mobility and ADLs and to improve as far as overall cognition, so he can return back to his home setting. 5. Discharge destination would be back home where he lives with his ex-. He will need to be quite independent in order to return back to the home setting. He did note that he was having problems with forgetfulness, even before the hospitalization. 6. Expected therapy by discipline includes PT, OT and speech 1 hour per day, 5 days a week throughout the duration of the acute [place] [address] REHAB UNIT PLAN OF CARE Name: LEYDA DUVALL Room #: 516-1 ADM IN [facility]#: [id number] Admission: 10/18/20 Attend Phys: Rafa Calle MD Discharge: Date of : 47 Report #: [id number] ADDENDUM: The patient's prognosis for significant practical improvement within a reasonable period of time appears good. Given the patient's complex medical condition and risk of further medical complication, rehabilitation services could not be safely provided at the lower level of care such as a snf facility. <ELECTRONICALLY SIGNED> By: Rafa Calle MD 10/26/20 1104 [id number] Rafa Calle MD /nt
--- NOTE | 2020-10-26 11:10 | NUR ---
Nutrition followup: pt continues on rehab unit post hip fracture. Eating 75-100% of most meals on regular diet without significant weight changes. Plan D/C 10/28. Low nutrition risk.
--- NOTE | 2020-10-26 13:25 | NUR ---
Team meeting, recommendation: pain meds for pain. dressing to right hip. Needs assist with pills and bills. Will need fww. [facility] boland ( pt, ot, nursing) dc on .
--- NOTE | 2020-10-26 18:39 | NUR ---
ADM OXYCODONE 10MG PO FOR PAIN OF 10 ON 1-10 SCALE. PT STATED HE COULD FEEL THE PAIN COMING ON. PT EXCITED ABOUT LEAVING THIS THURS.
[2020-10-26 19:53] VITALS: BP 129/80
--- NOTE | 2020-10-27 05:50 | NUR ---
ASSUMED PT CARE THIS EVENIN. PT IS ALERT AND ORIENTED X4. PT AND SPOUSE HAVE CONCERNS FOR WOUND CARE AFTER DC AND PT WOULD LIKE TO STAY COUPLE MORE DAYS. PT HAS INCISION SITE TO THE R HIP WITH SEROUS DRAINAGE; DRGS CHANGE WAS COMPLETED. ROMY ARE STILL INTACT. PT'S PAIN WAS MANAGED BY PRN PAIN MEDS. PT IS UPX1 WITH WALKER TO THE BR. VS ELSIE WITHIN THE NORMAL RANGE. NO OTHER CONCERNS WERE VERBALIZED.PT TOLEARTING RA. FALL PRECAUTIONSIN PLACE. WILL CONTINUE TO MONITOR.
[2020-10-27 07:15] VITALS: BP 137/58
--- NOTE | 2020-10-27 08:40 | NUR ---
PT WORKING WITH THERAPY. PT STATED PAIN TO RT HIP IS 10 ON 1-10 SCALE. PT USING WALKER. PT DRESSING TO RT HIP IS DRESSED. PT STATED THE KRISTIN HOSE LAST NIGHT CUT INTO HIS LEGS. PT RECIVED OXYCODONE 10MG PO FOR PAIN. PT DISCHARGE DATE IS 10/30. LEONELA EX- IS WORRIED ABOUT ROMY COMING OUT BEFORE HE DISCHARGES.
--- NOTE | 2020-10-27 09:58 | NUR ---
Cm notified by becky DONG moving till 10/30, provider plus notified and will deliver fww prior to dc.
--- NOTE | 2020-10-27 12:55 | NUR ---
ADM OXYCODONE 10MG PO FOR PAIN TO RT HIP OF 8 ON 1-10 SCALE.
--- NOTE | 2020-10-27 13:59 | NUR ---
I have reviewed the documentation by Peg Jaeger from 10/25/20 to 10/26/20 and I concur with it. BRENDA XIE
--- NOTE | 2020-10-27 17:28 | NUR ---
ADM OXYCODONE 10MG PO FOR PAIN TO RT HIP, PT WAS RESTING IN BED WITH LEGS ELEVATED.
--- NOTE | 2020-10-28 05:28 | NUR ---
CARE ASSUMED AT 1900 PATIENT WAS IN BED ASLEEP.PATIENT AOX4 CONFUSED AND FORGETFUL. PAIN CONTROLLED THIS SHIFT. PATIENT ENCOURAGED FLUIDS.DRESSING CHANGE DONE ON THE RIGHT HIP, ROMY ARE INTACT, MINIMUM DRAINAGE NOTED. PATIENT WAS CALM AND COOPERATIVE THIS SHIFT. FALL PRECAUTION IN PLACE. PATIENT IN BED ASLEEP AT THIS TIME BREATHING REGULAR AND UNLABOURED.
[2020-10-28 08:00] VITALS: BP 129/67
[2020-10-28 12:40] LABS: HEMATOCRIT 34.6 % (42.0-52.0); HEMOGLOBIN 11.3 gm/dL (14.0-18.0); MCH 31.9 pg (26.0-34.0); MCHC 32.8 g/dL (28.0-37.0); MCV 97.2 fL (80.0-100.0); RBC 3.56 mil/uL (4.50-6.00); RDW 15.3 % (10.5-14.5); WBC 7.6 thou/uL (4.0-11.0)
[2020-10-28 12:57] LABS: CREATININE 1.3 mg/dL (0.7-1.3)
--- NOTE | 2020-10-28 14:11 | NUR ---
ASSESSMENT CHARTED. PT ALERT AND ORIENTED. VSS. WOUND CARE PROVIDED ON THE RIGHT THIGH. SURGICAL ROMY INTACT. REDNESS NOTED AROUND THE INCISION. TENDER TO TOUCH. PRN PAIN MED GIVEN WITH PARTIAL RELIEF. NO CONCERNS AT THIS TIME.
[2020-10-28 20:17] VITALS: BP 148/92
--- NOTE | 2020-10-29 00:47 | NUR ---
PT ALERT AND ORIENTED X 4. AMB TO BR WITH WALKER AND ASSIST X 1 WITHOUT DIFFICULTY. RIGHT HIP DRESSING C/D/I. PT REFUSED COLACE AND MIRALAX AT HS. PT C/O PAIN IN RIGHT HIP. OXYCODONE GIVEN ORDERED. BED ALARM ON FOR SAFETY. PT APPEARS TO BE SLEEPING ON HOURLY ROUNDS.
[2020-10-29 08:07] VITALS: BP 143/76
[2020-10-29 09:40] VITALS: BP 143/76
--- NOTE | 2020-10-29 09:45 | NUR ---
Dc on sunday10/30/20, home with elise [place]en[facility] (pt, ot, st, nursing and sw). FWW delivered already on 10/29/20 Ex- will transport him home. Bedside nurse to fax dc orders and summary to elise at # [phone] day of discharge.
[2020-10-29] MEDS ORDERED: PERCOCET 10-321 EACH PO ×2 (13:09→16:13)
[2020-10-29] MEDS ORDERED: CARDIZEM CD 18180 M3 PO (15:06)
[2020-10-29] MEDS ORDERED: CEPHALEXIN500 MG PO (15:06)
[2020-10-29] MEDS ORDERED: ITCH RELIEF CRE28 GM TOP (15:06)
[2020-10-29] MEDS ORDERED: PROBIOTIC1 EAC7 PO (15:06)
[2020-10-29] MEDS ORDERED: ELIQUIS5 MG PO (15:06)
--- NOTE | 2020-10-29 17:31 | NUR ---
ASSUMED PATIENT CARE AT 0700. A/O X4. RIGHT HIP PAIN. RIGHT HIP INCISION RED WITH EDEMA. CALLED DR FLORES OFFICE THAT REPORTED RIGHT HIP XR. DRESSING CHANGED PER ORDER. SLOWLY TOWARDS POC GOALS.
[2020-10-29 20:35] VITALS: BP 144/91
--- NOTE | 2020-10-30 02:01 | NUR ---
PT ASSESSMENT COMPLETED AND VSS. MEDS GIVEN ORDERED AND WELL TOLERATED. FALL PRECAUTIONS IN PLACE AT HS. MOD I DURING THE DAY. PAIN AND SLEEP MEDICATION HELPFUL. DSG ON R HIP DRY AND INTACT. DAY RN CONTACTED SURGERY REGARDING TEST RESULTS AND SURGICAL SITE APPEARANCE. DR AWARE. PT SLEEPING. WILL CONTINUE TO MONITOR FREQUENTLY.
[2020-10-30 08:00] VITALS: BP 145/66
--- NOTE | 2020-10-30 10:57 | NUR ---
ASSUMED CARE AT 0700. PATIENT IS ALERT AND ORIENTED X4. PATIENT BILLINGS'S, AGENCY SALES REPRESENTATIVE ARE EQUAL. LUNGS ARE CLEAR AND DEMINISHED. ABD IS SOFT WITH BSX4. PATIENT IS MOD/I IN ROOM WITH WALKER. PATIENT IS UP TO THE BATHROOM INDEPENDENTLY. PATIENT CONTINUES ON PO ABTS WITHOUT ADVERSE AFFECTS. PATIENT DRESSING TO RIGHT HIP CHANGED ACCORDING TO PROTOCOL. PATIENT STILL HAVING SOME SERIOUS DRAINAGE FROM RIGHT HIP. DR. HENDRICKS HAS NOT SEEN PATIENT YET R/T HIS U.S. DONE ON . ROMY ARE INTACT. SITE IS RED. FALL AND SAFETY PROTOCOLS IN PLACE. C/O PAIN IN HIS RIGHT HIP. MEDICATED WITH PRN PAIN MEDS. CONTINUES TO PROGRESS SLOWLY TOWARDS D/C GOALS. WILL CONTINUE TO MONITER.
--- NOTE | 2020-10-30 10:59 | HC ---
[facility] [place] [address] [place] [address] CONSULTATION Name: LEYDA DUVALL Room #: 516-1 ADM IN M.R.#: [id number] Admission: 10/18/20 Attend Phys: Rafa Calle MD Discharge: Date of : 47 Report #: [id number] THIS REPORT FOR: cc: Jeramy Rincon MD, Rene P. MD Deutch,Lanre Aragon. PhD ~ DATE OF SERVICE: 10/24/2020 NEUROBEHAVIORAL STATUS EXAM AGE: 75. ATTENDING PHYSICIAN: Rafa Calle M.D. METAL WORKER: Lanre Jeffery, PhD CLINICAL PRESENTATION: The patient is a 75-year-old male admitted to the rehabilitation unit at [facility] for evaluation and treatment of a right femoral neck fracture status post hemiarthroplasty on 10/15/2020. His assessment included a fall with closed head injury, right arm abrasion status post fall, chronic back pain, atrial fibrillation, tobacco abuse, and hyperlipidemia. His fall was reported to have occurred while at his home. He had 2 falls and one that is associated with the fracture of his right hip. A neuropsychological assessment was requested to provide assistance in the assessment of cognitive and emotional status and provide recommendations and services. Prior to this most recent admission, he was living independently with his in their home. He has 1 daughter and 3 grandchildren. He reported having had one grandson who from suicide over 10 years ago. The patient has a ninth-grade education. He has a remote history of alcohol abuse, but has been sober for over 30 years. He reports having had 5 brothers that are all from alcoholism. The patient reports having had multiple back surgeries. He stated that he had discontinued driving for about 20 years. His has been managing driving, his medication, and bill payment. 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 TECHNIQUES UTILIZED: Clinical interview, review of medical records, staff consultation and behavioral observation, mini mental status exam 2 standard version, brief verbal fluency assessment and clock drawing. EXAMINATION FINDINGS: The patient was alert and cooperative with the assessment. He accurately described events surrounding his admission. There is no evidence of aphasia. He does not report auditory or visual hallucinations [facility] [address] [place] [address] CONSULTATION Name: LEYDA DUVALL Room #: 516-1 ADM IN ..#: [id number] Admission: 10/18/20 Attend Phys: Rafa Calle MD Discharge: Date of : 47 Report #: [id number] and there is no evidence of thought disorder. The patient does not report problems with cognitive functioning, anxiety, depression or decreased appetite. Emotional state and cognitive functioning are reported to be within normal limits. His performance on the MMSE 2 brief version was 13 and 16. However, he had difficulty with initial registration for later recall. He was 4/5 for orientation to time, 5/[address], and 2/3 for immediate recall of 3 items after a brief time delay and distraction. Performance on the standard version of the MMSE 2 was within normal limits with a raw score of 25/30, which is a T-score of 48 and percentile rank of 42. He was 4/5 for serial sevens, 2/2 for naming, 1/1 for repetition, 3/3 for comprehension. He could read and follow a single command and write a sentence. However, the patient was unable to copy a simple geometric design. The patient was also unable to draw a clock and set the hands at a designated time. Additionally, visual spatial constructive deficits were noted along with spatial planning and problem solving. Brief verbal fluency assessment shows letter fluency to be extremely low with a raw score of 4 and a T-score of 26. Brief category fluency was within normal limits with a T-score of 43 and percentile rank of 24. The patient is presenting with [id number] deficits in verbal fluency, which suggests an executive dysfunction. He is alert and oriented. Impairment is going to primarily be with planning and problem solving. DIAGNOSTIC IMPRESSION: Mild neurocognitive disorder with poor insight, possibly due to concussion. Additionally, medication with sedating features, e.g., Robaxin and Norflex, may be contributing to his presentation. RECOMMENDATIONS: Treatment for neurocognitive disorder that includes the use of speech therapy to assist with implementation and development of compensatory strategies. His will need to continue to assist with management of medication, finances, and nutrition. He has already discontinued driving. Educational information for the patient and his of cognitive deficits inorder to maintain safety. Thank you very much for allowing me to provide the consultation on this patient. <ELECTRONICALLY SIGNED> By: Lanre Jeffery, PhD 10/30/20 1059 [id number] Lanre Jeffery, PhD /nt
--- NOTE | 2020-10-30 14:02 | NUR ---
WAS NOTIFIED BY [facility] SPOKE WITH JERSON SHE SAID PT WAS TO DC TODAY SPOKE WITH BITA MORALES HE SAID DISCHARGE WAS CANCELLED PT NEEDS SURGERY AGAIN POSS I/D SUNDAY OR SUNDAY. NOTIFIED JERSON KAUFFMAN OF PT'S DC CANCELLED. SHE WILL F/U WITH SHANNON ON SUNDAY.
--- NOTE | 2020-10-30 18:33 | NUR ---
1814 DR. SANTOS HERE TO SEE PATIENT R/T RIGHT HIP DRAINAGE. MINIMAL DRAINAGE ON ABD'S. PLAN IS TO CONTINUE MONITER PATIENT, AND RIGHT HIP DRAINAGE, MONITER HIS TEMP, ENCOURAGE PO FLIUIDS, MONITER HIS PAIN, AND SITE REDNESS. DR. SANTOS WILL SEE IN AM AND DECIDE AFTER TALKING TO DR. GONSALEZ IF SURG IS NEEDED. WILL CONTINUE TO MONITER.
[2020-10-30 19:58] VITALS: BP 153/98
--- NOTE | 2020-10-31 03:20 | NUR ---
assumed care approx 1900 evening 10/30. pt lying in bed with head of bed elevated at change of shift. pt alert and oriented x4, appropriate and cooperative. pt given pain meds as ordered. dressing to right hip intact. pt denies complaints regarding dressing. so far no need for dressing change this night. will continue to monitor. bed alarm on and call light in reach.
[2020-10-31 05:13] LABS: CALCIUM 9.1 mg/dL (8.5-10.1); CREATININE 1.1 mg/dL (0.7-1.3); MAGNESIUM 1.5 mg/dL (1.8-2.4); PHOSPHORUS 3.5 mg/dL (2.6-4.7)
[2020-10-31 05:17] LABS: POTASSIUM 4.2 mmol/L (3.5-5.1)
[2020-10-31 07:58] LABS: ABSOLUTE NEUTROPHILS 4.5 thou/uL (1.4-8.2); BASOPHILS 0.8 % (0.0-2.0); EOSINOPHILS 4.5 % (0.0-3.0); LYMPHOCYTES 17.7 % (24.0-44.0); MCH 32.5 pg (26.0-34.0); MCHC 33.4 g/dL (28.0-37.0); MCV 97.4 fL (80.0-100.0); MONOCYTES 12.5 % (1.0-8.0); PLATELET COUNT 368 thou/uL (150-400); POLYS 64.5 % (36.0-66.0); RBC 3.39 mil/uL (4.50-6.00); RDW 14.9 % (10.5-14.5)
[2020-10-31 08:55] VITALS: BP 150/94
--- NOTE | 2020-10-31 09:22 | NUR ---
ASSUMED CARE AT 0700. PATIENT IS ALERT AND ORIENTED X4. PATIENT BILLINGS'S, RETAIL SUPERVISOR ARE EQUAL. LUNGS ARE CLEAR AND DEMINISHED. ABD IS SOFT WITH BSX4. PATIENT IS MOD/I IN ROOM WITH WALKERJ. PATIENT RIGHT HIP DRESSING IS DRY AND INTACT. T98.1 THROUGHOUT THE NIGHT. PATIENT WAS ENCOURAGED TO INCREASE HIS FLUID INTAKE. PAIENT CONTINUES ON PO ABT WITHOUT ADVERSE AFFECTS. FALL AND SAFETY PROTOCOLS IN PLACE. C/O BACK AND RIGHT HIP PAIN. MEDICATED WITH PRN PAIN MED. DRESSING CHANGED ACCORDING TO PROTOCOL. WILL CONTINUE TO MONITER.
[2020-10-31 20:13] VITALS: BP 163/86
--- NOTE | 2020-11-01 05:02 | NUR ---
ASSUMED CARE AT 1900 OF 10/30. PATIENT IS A&OX4. DENIES SOB. CONTINUES TO REPORT LOWER BACK PAIN AND RIGHT HIP PAIN. RIGHT HIP DRESSING WAS PERFORMED AT START OF SHIFT, MINIMAL SEROUS DRAINAGE NOTED ON LOWER HALF OF DRESSING. ROMY IN PLACE AND INTACT, INCISION WELL APPROXIMATED. TOPICAL ANTIHISTAMINE APPLIED AROUND INCISION SITE. PATIENT HAS BEEN NPO SINCE MIDNIGHT. IV PUSH PAIN MEDICATION ORDER RECEIVED TO HELP MANAGE PAIN AFTER MIDNIGHT. 20G IV CATHETER INSERTED IN RIGHT FOREARM, PATENT AND SALINE LOCKED. STAND BY ASSIST WITH TRANSFERS AND AMBULATION USING WALKER. USES URINAL TO VOID, URINAL PLACED AT BEDSIDE. FALL PRECAUTIONS IN PLACE, AND CALL LIGHT WITHIN REACH. WILL CONTINUE TO MONITOR.
[2020-11-01 07:15] VITALS: BP 131/99
[2020-11-01] MEDS ORDERED: METHOCARBAMOL750 MG PO (08:59)
[2020-11-01] MEDS ORDERED: CEPHALEXIN500 MG PO (09:00)
[2020-11-01] MEDS ORDERED: CARDIZEM CD 18180 M3 PO (09:00)
[2020-11-01] MEDS ORDERED: ELIQUIS5 MG PO (09:00)
[2020-11-01] MEDS ORDERED: COLACE100 MG PO (10:36)
[2020-11-01] MEDS ORDERED: MIRALAX17 GM PO (10:36)
--- NOTE | 2020-11-01 10:54 | NUR ---
ASSUMED CARE AT 0700. PATIENT IS ALERT AND ORIENTEDX4. PATIENT IS NPO UNTIL SEEN BY DR. GRAF, ORTHOPEDICS. LUNGS ARE CLEAR. ABD IS SOFT WITH BSX4. RIGHT HIP DRESSING IS DRY AND INTACT. TAPE GARCIA CLEANED AND Z-GUARD APPLIED. PATIENT IS MOD/I IN ROOM WITH WALKER. FALL AND SAFETY PROTOCOLS IN PLACE. C/O BACK AND RIGHT HIP PAIN. MEDICATED WITH PRN PAIN MED. PATIENT CONTINUES TO PROGRESS TOWARDS D/C GOALS. IV IN RIGHT FORARM IS PATENT AND INTACT. WILL CONTINUE TO MONITER.
--- NOTE | 2020-11-01 11:02 | NUR ---
0745 DR. GRAF HERE TO SEE PATIENT. ORDERS RECIEVED FOR PATIENT TO HAVE REGULAR DIET, ROMY ARE TO BE REMOVED, AFTER INCISION SITE IS PAINTED WITH BETADINE, STERI-STRIPS TO BE APPLIED, THEN COVERED WITH [place] BANDAID DRESSING. PATIENT CAN BE D/C'D TO HOME, LATER TODAY. PAIENT WILL NEED TO CONTINUE ABT FOR 10 MORE DAYS. F/U IN OFFICE IN 1 WEEK.
[2020-11-01 12:50] VITALS: BP 143/76
[2020-11-01 12:58] VITALS: BP 143/76
--- NOTE | 2020-11-01 14:40 | NUR ---
PATIENT GIVEN D/C INSTRUCTIONS AND SCIPTS. PATIENT LEFT WITH ALL OF HIS BELONGINGS ACCOMPANIED BY . PATIENT IS MOD/I WITH TRANSFERS FROM BED TO W/C. PATIENT TRANSFERED FROM W/C TO CAR INDEPENDENTLY.
== END 2020-11-01 14:36 | disposition home or self-care (01) | DRG 947 ==
PROVIDERS: Internal Medicine; Nurse Practitioner; Nurse Practitioner Family; ADMIT Physical Medicine & Rehabilitation; ATTEND Physical Medicine & Rehabilitation
DX: R53.81 Other malaise (principal); S72.011A Unspecified intracapsular fracture of right femur, initial encounter for closed fracture; L03.115 Cellulitis of right lower limb; S09.90XA Unspecified injury of head, initial encounter; S40.811A Abrasion of right upper arm, initial encounter; G89.29 Other chronic pain; I48.0 Paroxysmal atrial fibrillation; F17.210 Nicotine dependence, cigarettes, uncomplicated; E83.42 Hypomagnesemia; K59.00 Constipation, unspecified; N40.0 Benign prostatic hyperplasia without lower urinary tract symptoms; D64.9 Anemia, unspecified; S70.01XA Contusion of right hip, initial encounter; M54.9 Dorsalgia, unspecified; E78.5 Hyperlipidemia, unspecified; E78.00 Pure hypercholesterolemia, unspecified; I10 Essential (primary) hypertension; K21.9 Gastro-esophageal reflux disease without esophagitis; W18.39XA Other fall on same level, initial encounter; Z88.8 Allergy status to other drugs, medicaments and biological substances; Y93.89 Activity, other specified; Y99.8 Other external cause status; Y92.89 Other specified places as the place of occurrence of the external cause; Z86.73 Personal history of transient ischemic attack (TIA), and cerebral infarction without residual deficits; Z47.89 Encounter for other orthopedic aftercare; Z71.6 Tobacco abuse counseling; Z60.2 Problems related to living alone
CPT/HCPCS: 10112

== ENCOUNTER 2021-01-01 15:10 | Inpatient (IN) | payer OTHER ==
[~2021-01-01] VITALS: Ht 167.6 cm; Wt 73.2 kg
--- NOTE | ~2021-01-01 | EMS ---
[facility] [address] [place] [address] EMS Patient Care Report Name: LEYDA DUVALL Room #: PRE LOS Winston#: [id number] Admission: Attend Phys: Discharge: Date of : 47 Report #: [id number] THIS REPORT FOR: //name// Report Transmitted: 01/01/2021 14:41 EMS Care Summary [facility] MED-ACT Incident [id number] @ 01/01/2021 14:26 Incident Location [address] [place] [address] Patient LEYDA DUVALL Male, 75 Years 1945 Patient Address [address] [place] [address] Patient History Hypertension (HTN),Kidney/Renal Failure,Hyperlipidemia,Gastro-Esophageal Reflux Disease (GERD),Pneumonia,Atrial Fibrillation,Anemia,Hypokalemia,Chronic Respiratory Failure, Patient Allergies No known allergies, Patient Medications Famotidine, Potassium, Amlodipine, Docusate Sodium, Gabapentin, Oxycodone, Diltiazem, Lovastatin, Eliquis, Chief Complaint "He is lethargic and weak" Disposition Transported No Lights/[place] Dispatch Reason Sick Person Transported To [facility] [address] [place] [address] EMS Patient Care Report Name: LEYDA DUVALL Room #: PRE ER Tish#: [id number] Admission: Attend Phys: Discharge: Date of : 47 Report #: [id number] Narrative Hope responded emergent to Jin Figueroa for a pt with lethargy. [id number] arrived on scene to find the pt laying in position on his bed and with his eyes closed. Pt would wake to verbal stimulation. FD was obtaining vitals and NH staff was at the pt's side. NH staff reports pt has been lethargic today, won't get out of bed and won't take his medications. She states he is usually very independent, ambulates with use of a walker and will eat and take his medications as instructed so today is out of the norm for the pt. She states he was fine yesterday when she saw him but when she came in at 7am this morning he was lethargic. NH staff states family reported pt "Gets like this when his potassium levels are off." Pt has no slurred speech and no facial droop. He has a large hematoma on his right eye that NH staff states was a result of a fall 2 weeks ago and he was evaluated at the ER. Pt has full uses of his upper extremities. Pt recognizes he feels weak, tired and states he has a headache. Pt is moved from bed to cot via sheet. Pt secured to cot via 5 point seatbelt and moved to ambulance. IV as charted and EKG 12 lead. Transport begins. Pt has no change in condition during transport. Pt to room 5, report given to RN and pt moved to bed via sheet without incident. Initial Vitals @14:49P: 37, @14:50P: 99, @14:50P: 78, @15:03P: 78,R: 14,BP: 128/65,SpO2: 98, @PTAP: 76,R: 18,BP: 106/64,Temp: 102F,Glucose: 106,SpO2: 96, @14:47P: 73,R: 14,BP: 120/64,Pain: 2/10,GCS: 15,SpO2: 98,Revised Trauma: 12, Impression Malaise Procedures @14:57 Surgical Mask on Patient Response: Unchanged @14:50 12-Lead ECG Response: UnchangedSucceeded @14:49 IV Therapy - Saline Lock cc (20 ga) Site: Antecubital-Right Response: UnchangedFailed @14:51 IV Therapy - Saline Lock 10cc (22 ga) Site: Hand-Right Response: UnchangedSucceeded [address] [address] EMS Patient Care Report Name: LEYDA DUVALL Room #: [facility] M.R.#: [id number] Admission: Attend Phys: Discharge: Date of : 47 Report #: [id number] 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,BP: 106/64 M,PULSE: 76,RR: 18 R,SPO2: 96 Ox,ETCO2: ,B,PAIN: ,GCS: , 14:25,Call Received 14:25,Psap Call 14:26,Dispatched 14:27,En Route 14:33,On Scene 14:37,At Patient 14:47,BP: 120/64 M,PULSE: 73,RR: 14 R,SPO2: 98 Ox,ETCO2: ,BG: ,PAIN: 2,GCS: 15, 14:49,IV Therapy - Saline Lock cc 20 ga Site: Antecubital-Right,Response: UnchangedFailed, 14:49,BP: / M,PULSE: 37,RR: R,SPO2: Ox,ETCO2: ,BG: ,PAIN: ,GCS: , 14:50,BP: / M,PULSE: 78,RR: R,SPO2: Ox,ETCO2: ,BG: ,PAIN: ,GCS: , 14:50,12-Lead ECG,Response: UnchangedSucceeded, 14:50,BP: / M,PULSE: 99,RR: R,SPO2: Ox,ETCO2: ,BG: ,PAIN: ,GCS: , 14:51,IV Therapy - Saline Lock 10cc 22 ga Site: Hand-Right,Response: UnchangedSucceeded, 14:54,Depart Scene 14:57,Surgical Mask on Patient,Response: Unchanged 15:03,BP: 128/65 M,PULSE: 78,RR: 14 R,SPO2: 98 Ox,ETCO2: ,BG: ,PAIN: ,GCS: , 15:06,At Destination 15:21,Call Closed Disclaimer v1.1 Copyright 2020 [employer] This EMS Care Summary contains data elements from the applicable legal record (which may be displayed differently). It is designed to provide pertinent information for the following purposes: continuity of care, clinical quality, and state data reporting. The complete legal record is available to ED staff and administrators of the receiving hospital in [employer]'s Patient Tracker. All data is provided "as is."
[~2021-01-01 15:10] MED LIST changes: +CEPHALEXIN500 MG PO; +COLACE100 MG PO; +ITCH RELIEF CRE28 GM TOP; +METHOCARBAMOL750 MG PO; +MIRALAX17 GM PO; +PERCOCET 10-321 EACH PO; +PROBIOTIC1 EAC7 PO
[2021-01-01 15:12] VITALS: BP 153/53
[2021-01-01 15:36] LABS: HEMATOCRIT 29.6 % (42.0-52.0); HEMOGLOBIN 9.4 gm/dL (14.0-18.0); MCH 30.3 pg (26.0-34.0); MCHC 31.7 g/dL (28.0-37.0); MCV 95.7 fL (80.0-100.0); PLATELET COUNT 323 thou/uL (150-400); RBC 3.09 mil/uL (4.50-6.00); WBC 12.9 thou/uL (4.0-11.0)
[2021-01-01 15:53] LABS: CALCIUM 9.1 mg/dL (8.5-10.1); CREATININE 1.1 mg/dL (0.7-1.3)
[2021-01-01 16:03] LABS: ALBUMIN 2.2 g/dL (3.4-5.0); TOTAL BILIRUBIN 0.6 mg/dL (0.2-1.0); TOTAL PROTEIN 6.6 g/dL (6.4-8.2)
[2021-01-01] MEDS ORDERED: AMLODIPINE BESY10 MG PO (16:11)
[2021-01-01] MEDS ORDERED: FAMOTIDINE 10 M10 MG PO (16:12)
[2021-01-01] MEDS ORDERED: NORFLEX100 MG PO (16:13)
[2021-01-01] MEDS ORDERED: POTASSIUM CHLO20 ME1 PO (16:14)
[2021-01-01] MEDS ORDERED: REMERON15 M2 PO (16:15)
[2021-01-01] MEDS ORDERED: NEURONTIN 300M300 M2 PO (16:16)
[2021-01-01 16:37] LABS: ABSOLUTE NEUTROPHILS 11.1 thou/uL (1.4-8.2); ATYPICAL LYMPHS 1 %
[2021-01-01 17:04] LABS: URINE BILIRUBIN 1+ (Negative); URINE BLOOD 1+ (Negative); URINE CLARITY CLEAR; URINE COLOR YELLOW; URINE GLUCOSE-RANDOM* NEGATIVE (Negative); URINE KETONES 1+ (Negative); URINE LEUKOCYTES-REFLEX NEGATIVE (Negative); URINE NITRITE-REFLEX NEGATIVE (Negative); URINE PROTEIN (DIPSTICK) 2+ (Negative); URINE UROBILINOGEN 0.2 E.U./dl (0.2-1.0)
[2021-01-01 17:06] LABS: ICTOTEST (BILI CONFIRMATORY) Negative (Negative)
[2021-01-01 17:22] LABS: CASTS None Seen /LPF (None Seen); SQUAMOUS 0-3 Few /LPF (0-3); URINE RBC 1-2 Rare /HPF (NONE SEEN); URINE WBC-REFLEX 0-5 Rare /HPF (0-5)
[2021-01-01 17:23] LABS: BACTERIA-REFLEX 1-9 Few /HPF (None Seen); CRYSTALS None Seen /LPF (None Seen)
--- NOTE | 2021-01-01 18:27 | NUR ---
[facility] UPDATED AT THIS TIME
[2021-01-01 18:28] VITALS: BP 127/69
[2021-01-01 20:41] VITALS: BP 134/91
--- NOTE | 2021-01-01 20:45 | NUR ---
PT ADMITTED FROM ED AT 2034. PT ALERT, ORIENTED TO PERSON, PLACE AND DAY. MONITOR A-FIB. PT SHIVERING, STATES HE IS COLD, WARM BLANKET PROVIDED. PT HAS LARGE HEALING BRUISE OVER ENTIRE RIGHT FACE, RIGHT EYE SWOLLEN, BRUISES OVER LEGS AND RIGHT HIP IN VARIOUS STAGES OF HEALING. LOWER LEGS DISCOLORED FROM PVD. RIGHT HIP INCISION HEALED AND WELL APPROXIMATED.
[2021-01-02 03:18] VITALS: BP 141/70
[2021-01-02 04:41] LABS: HEMATOCRIT 34.6 % (42.0-52.0); HEMOGLOBIN 11.3 gm/dL (14.0-18.0); MCHC 32.5 g/dL (28.0-37.0); MCV 95.5 fL (80.0-100.0); RBC 3.62 mil/uL (4.50-6.00); RDW 15.1 % (10.5-14.5); WBC 10.5 thou/uL (4.0-11.0)
[2021-01-02 04:50] LABS: CHOLESTEROL 91 mg/dL (<200); HDL CHOLESTEROL 44 mg/dL (>40); LDL CHOLESTEROL 31 mg/dL (<100); TC:HDL 2.1 Ratio (Not establshd); TRIGLYCERIDE 81 mg/dL (<150); VLDL 16 mg/dL (<40)
[2021-01-02 04:53] LABS: ALBUMIN 2.1 g/dL (3.4-5.0); CALCIUM 9.5 mg/dL (8.5-10.1); MAGNESIUM 1.6 mg/dL (1.8-2.4); TOTAL PROTEIN 7.3 g/dL (6.4-8.2)
[2021-01-02 04:54] LABS: POTASSIUM 3.4 mmol/L (3.5-5.1); SERUM ASSESSMENT Clear
[2021-01-02 04:59] LABS: % SATURATION 10 % (20-39); IRON 19 ug/dL (65-175); TIBC 181 ug/dL (250-450)
[2021-01-02 07:58] VITALS: BP 121/80
[2021-01-02 11:23] VITALS: BP 108/76
[2021-01-02 15:37] VITALS: BP 121/82
--- NOTE | 2021-01-02 16:52 | NUR ---
PATIENT ASSESMENTS CHARTED. NEUROLOGY CONSULTED - FELT LIKE CONFUSION WAS BASED ON PATIENTS PAIN AND MEDICATIONS NOT A CHANGE IN NEUROLOGIC STATUS. STRESS TEST ORDERED AND MRI FOR TOMORROW.
[2021-01-02 20:17] VITALS: BP 140/73
[2021-01-03 03:18] VITALS: BP 133/82
[2021-01-03 03:54] LABS: HEMATOCRIT 32.6 % (42.0-52.0); HEMOGLOBIN 10.6 gm/dL (14.0-18.0); MCH 31.1 pg (26.0-34.0); MCHC 32.6 g/dL (28.0-37.0); MCV 95.4 fL (80.0-100.0); RBC 3.42 mil/uL (4.50-6.00); WBC 7.6 thou/uL (4.0-11.0)
[2021-01-03 04:08] LABS: CALCIUM 9.1 mg/dL (8.5-10.1); MAGNESIUM 1.8 mg/dL (1.8-2.4); POTASSIUM 3.7 mmol/L (3.5-5.1)
--- NOTE | 2021-01-03 06:23 | NUR ---
ASSUMED CARE OF PT AT 1900. PT ASSESSED TO BE AOX1 75M P[RESENTING WITH POSSIBLE NSTEMI, AMS, DEHYDRATION. THROUGHOUT THE NIGHT PT RESTED QUIETLY IN ROOM WITH NO COMPLAINTS, VSS. PT STABLE ON RA, USES THE URINAL APPROPRIATELY, PAIN CONTROLLED WITH ORAL PAIN MEDSX1, AND CAN AMBULATE X1 WITH WALKER GB. PT RESTING IN ROOM NOW, AWAITING STRESS TEST IN AM WITH [facility]SBLE MRI WELL.
[2021-01-03 07:49] VITALS: BP 135/91
--- NOTE | 2021-01-03 11:41 | 2DMMODE ---
[facility] [address] [place] [address] 2 D/M-MODE ECHOCARDIOGRAM Name: LEYDA DUVALL Room #: 207-P ADM IN M.R.#: [id number] Admission: 01/01/21 Attend Phys: Óscar Cornell MD Discharge: Date of : 47 Report #: [id number] THIS REPORT FOR: cc: Andie Banegas MD, Lou K. MD Park, Jin S. MD ~ APPROVED REPORT Study performed: 01/03/2021 10:54:00 EXAM: Comprehensive 2D, Doppler, and color-flow Echocardiogram Patient Location: Bedside Room #: 207 Status: routine BSA: 1.82 HR: 84 bpm BP: 135/91 mmHg Rhythm: Atrial Fibrillation Other Information Study Quality: Adequate Indications Atrial Fibrillation Dyspnea Elevated Troponin 2D Dimensions IVSd: 14.47 (7-11mm) LVOT Diam: 21.56 (18-24mm) LVDd: 34.64 mm PWd: 13.11 (7-11mm) Ascending Ao: 33.42 (22-36mm) LVDs: 18.29 (25-40mm) Left Atrium: 35.22 (27-40mm) Aortic Root: 27.50 mm Volumes Left Atrial Volume (Systole) Single Plane 4CH: 47.01 mL Single Plane 2CH: 50.53 mL Biplane LA Volume: 58.00 mL LA ESV Index: 32.00 mL/m2 Aortic Valve AoV Peak Jerry.: 1.65 m/s AO Peak Gr.: 17.12 mmHg LVOT Max P.82 mmHg LVOT Max V: 0.97 m/s [facility] [place] [place] [address] 2 D/M-MODE ECHOCARDIOGRAM Name: LEYDA DUVALL Room #: 207-P [facility] IN ..#: [id number] Admission: 01/01/21 Attend Phys: Óscar Cornell, Discharge: Date of : 47 Report #: [id number] [id number] Vmax: 2.16 cm2 Pulmonary Valve PV Peak Jerry.: 1.03 m/s PV Peak Gr.: 4.25 mmHg Tricuspid Valve TR Peak Jerry.: 2.48 m/s RAP Estimate: 7.00 mmHg TR Peak Gr.: 24.55 mmHg RVSP: 32.00 mmHg Left Ventricle The left ventricle is normal size. There is normal LV segmental wall motion. Mild concentric left ventricular hypertrophy. The left ventricular systolic function is normal. LVEF is 60-65%. This study is not technically sufficient to allow evaluation of the LV diastolic function due to atrial fibrillation. Right Ventricle The right ventricle is normal size. The right ventricular systolic function is normal. Atria The left atrium size is normal. The right atrium size is normal. Aortic Valve The Aortic valve is sclerotic. No aortic regurgitation is present. There is no aortic valvular stenosis. Mitral Valve Mitral valve leaflets are mildly thickened. Trace mitral regurgitation. No evidence of mitral valve stenosis. Tricuspid Valve The tricuspid valve is normal in structure. Mild tricuspid regurgitation. PAP 28 mmHg Pulmonic Valve The pulmonary valve is normal in structure. There is no pulmonic valvular regurgitation. Great Vessels The aortic root is normal in size. IVC is normal in size and collapses >50% with inspiration. Pericardium There is no pericardial effusion. There is no pleural [facility] [address] [place] [address] 2 D/M-MODE ECHOCARDIOGRAM Name: LEYDA DUVALL Room #: 207-P ADM IN M.R.#: [id number] Admission: 01/01/21 Attend Phys: Óscar Cornell, Discharge: Date of : 47 Report #: [id number] effusion. <Conclusion> The left ventricle is normal size. Mild concentric left ventricular hypertrophy. The left ventricular systolic function is normal. The right ventricle is normal size. The left atrium size is normal. The Aortic valve is sclerotic. Mitral valve leaflets are mildly thickened. Mild tricuspid regurgitation. <ELECTRONICALLY SIGNED> By: Jamie Fernandez MD 01/03/21 1141 1141 1141 Jamie Fernandez MD /INF
[2021-01-03 15:17] VITALS: BP 136/85
--- NOTE | 2021-01-03 16:50 | NUR ---
Patient admits from [facility] with lethargy and AMS. Patient prev at [facility] with hip sx. Dc to [facility] acute rehab then dc home with care on 11/01/20. Patient dc from [facility] to [facility]. 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 She reports he is confused and lethargic. Tenative plan to return to facility. [facility] faxed clinical updates to facility. Cont to follow for dc planning.
[2021-01-03 18:31] VITALS: BP 136/85
--- NOTE | 2021-01-03 18:39 | NUR ---
PATIENT ASSESMENTS COMPLETED. PATIENT HAD A STRESS ECHO AND MRI. DAUGHTER CALLED WITH UPDATES BY ARLENE. PATIENT ONLY ORIENTED TO SELF AND DID NOT EAT VERY MUCH FOOD TODAY. VOIDING FREQUENTLY IN SMALL AMOUNTS. STILL COMPLAINING OF PAIN.
[2021-01-04 01:05] VITALS: BP 130/70
--- NOTE | 2021-01-04 02:56 | NUR ---
PATIENT RESTING IN HIS BED. AT THIS TIME PT IS AAOX3. STATES THAT SHE CONTINUES TO HAVE SOME PAIN TO HIS RIGHT SIDE. PATIENT DOES EXHIBIT SIGNS OF CONFUSION. HIS VITALS ARE STABLE. HE IS COMPLIANT WITH MEDICATION AND TREATMENT. ALL SAFETY PRECAUTIONS ARE IN PLACE. PATIENT HAS A GOOD APPETITE THIS EVENINGAND IS TOLERATING ALL FLUIDS.
[2021-01-04 04:38] VITALS: BP 128/82
[2021-01-04 04:41] LABS: CALCIUM 9.3 mg/dL (8.5-10.1); MAGNESIUM 1.7 mg/dL (1.8-2.4); POTASSIUM 3.2 mmol/L (3.5-5.1)
[2021-01-04 04:42] LABS: HEMATOCRIT 36.4 % (42.0-52.0); HEMOGLOBIN 11.9 gm/dL (14.0-18.0); MCH 31.3 pg (26.0-34.0); MCHC 32.7 g/dL (28.0-37.0); MCV 95.5 fL (80.0-100.0); RBC 3.81 mil/uL (4.50-6.00); RDW 14.9 % (10.5-14.5); WBC 6.2 thou/uL (4.0-11.0)
--- NOTE | 2021-01-04 07:10 | EKG ---
[address] [address] ELECTROCARDIOGRAM REPORT Name: LEYDA DUVALL Room #: 207-P ADM IN M.R.#: [id number] Admission: 01/01/21 Attend Phys: Óscar Cornell MD Discharge: Date of : 47 Report #: [id number] [facility] ED Test Date: 2021-01-01 Test Time: 15:30:03 Pat Name: LEYDA DUVALL Department: Room: 207 Gender: M Capacity Planning Analyst: vijay : 1945 Requested By: Donny Buckley Order Number: [id number] MD: Mandeep De Oliveira Measurements Intervals [place] Rate: 83 P: SD: QRS: -31 QRSD: 97 T: 65 QT: 456 QTc: 536 Interpretive Statements Atrial fibrillation Low voltage, extremity leads Compared to ECG 09/08/2016 18:12:24 Sinus rhythm no longer present Electronically Signed On 01-04-2021 7:10:49 VENDING ENTERPRISES SUPERVISOR by Mandeep De Oliveira [email or web address] <ELECTRONICALLY SIGNED> By: Mandeep De Oliveira MD, [facility] 01/04/21 0710 1530 29 Mandeep De Oliveira MD, FACC /EPI
[2021-01-04 08:45] VITALS: BP 128/67
--- NOTE | 2021-01-04 11:16 | NUR ---
Nutrition: Recommend GI consult due to niece comments of pain/nausea. Recommend ST eval to determine if altered consistency diet needed.
[2021-01-04 12:30] VITALS: BP 124/71
[2021-01-04 15:28] VITALS: BP 102/72
[2021-01-04 19:54] VITALS: BP 118/20
[2021-01-05 04:32] VITALS: BP 120/69
--- NOTE | 2021-01-05 04:59 | NUR ---
Assumed pt care at 1900. pt is lethargic but arousable.Pt is laying in bed, verbalizes pain. pain medication administered. Assessment is completed and documented. Scheduled meds administered to pt, no acute events through the night. continue to monitor. no further needs at this time.
[2021-01-05 05:48] LABS: HEMATOCRIT 36.4 % (42.0-52.0); HEMOGLOBIN 11.5 gm/dL (14.0-18.0); MCHC 31.5 g/dL (28.0-37.0); MCV 95.2 fL (80.0-100.0); RBC 3.82 mil/uL (4.50-6.00); RDW 14.7 % (10.5-14.5); WBC 8.2 thou/uL (4.0-11.0)
[2021-01-05 06:00] LABS: CALCIUM 9.2 mg/dL (8.5-10.1); POTASSIUM 3.8 mmol/L (3.5-5.1)
[2021-01-05 07:47] VITALS: BP 114/73
--- NOTE | 2021-01-05 08:47 | NUR ---
Assumed care of pt this AM. Pt is oriented to person & place. Still quite lethargic, but arousable when spoken to, follows commands. Pt on RA, Afib on the monitor, rate controlled. PT/OT consulted. High fall precautions in place. Will continue to assess pt needs throughout day.
--- NOTE | 2021-01-05 09:41 | EEG ---
[facility] [place] [address] [place] [address] ELECTROENCEPHALOGRAM Name: LEYDA DUVALL Room #: 207-P ADM IN M.R.#: [id number] Admission: 01/01/21 Attend Phys: Óscar Cornell MD Discharge: Date of : 47 Report #: [id number] THIS REPORT FOR: //name// DATE OF SERVICE: 01/04/2021 This patient is being evaluated for altered mental status. The patient's EEG was done by placing the electrode by standard 10-20 system of electrode placement. Both referential and sequential montages were used for recording. Background activity in this patient's EEG is about 7 Hz and 10 microvolt. The patient went to sleep that is associated with bilateral slowing and vertex sharp waves. Photic stimulation is unremarkable. Throughout the record, no active epileptiform activity was noticed. IMPRESSION: This is an abnormal EEG because it is disorganized and poorly formed. That is a nonspecific finding which can occur with dementia, encephalopathy, effect of psychotropic medication, etc. Clinical correlation is recommended. Thank you very much for this referral. <ELECTRONICALLY SIGNED> By: Trey Hadley MD 01/05/21 0941 Trey Hadley MD /nt
[2021-01-05 11:14] VITALS: BP 119/74
[2021-01-05 15:12] VITALS: BP 117/72
[2021-01-05 19:55] VITALS: BP 123/84
[2021-01-06 00:11] VITALS: BP 109/71
[2021-01-06 01:46] LABS: HEMATOCRIT 39.1 % (42.0-52.0); HEMOGLOBIN 12.3 gm/dL (14.0-18.0); MCHC 31.6 g/dL (28.0-37.0); MCV 95.1 fL (80.0-100.0); RBC 4.11 mil/uL (4.50-6.00); RDW 15.5 % (10.5-14.5)
[2021-01-06 01:50] LABS: CALCIUM 9.2 mg/dL (8.5-10.1); CREATININE 1.4 mg/dL (0.7-1.3); MAGNESIUM 1.9 mg/dL (1.8-2.4); POTASSIUM 4.2 mmol/L (3.5-5.1)
[2021-01-06 03:17] VITALS: BP 105/74
--- NOTE | 2021-01-06 05:16 | NUR ---
RECEIEVED PATIENT AT 1900H.AASESSMENT DONE CHARTED.MEDICATION PER APR.ON MONITOR SHOWING AFIB.HAD EPISODES OF LOW HEART RATE AND LOW 31BPM SEEN ON THE MONITOR AND WITH EPISODES OF PAUSE.BLOOD PRESSURE STABLE, PATIENT IS ASYMPTOMATIC.EKG TAKEN, INFORMED ASSISTANT STATISTICIAN.CALLED CARDIOLOGY AND SPOKE WITH DR. BAEZ AND INFORMED HIM OF THE PATIENT RYTHM, EPISODES OF BRADYCARDIA AND PAUSES. HE ORDERED TO HOLD METOPROLOL AND CARDIZEM.CONTINOUSLY MONITORED CLOSELY PATIENT.ALL NEEDS ATTENDED.
--- NOTE | 2021-01-06 08:05 | EKG ---
[address] [address] ELECTROCARDIOGRAM REPORT Name: LEYDA DUVALL Room #: 207-P ADM IN M.R.#: [id number] Admission: 01/01/21 Attend Phys: Óscar Cornell MD Discharge: Date of : 47 Report #: [id number] [facility] Test Date: 2021-01-06 Test Time: 00:23:17 Pat Name: LEYDA DUVALL Department: Room: 207 P Gender: M Conference Manager: Jannette : 1945 Requested By: Augusta Kilpatrick Order Number: [id number] : Mandeep De Oliveira Measurements Intervals [place] Rate: 68 P: CO: QRS: -34 QRSD: 92 T: 13 QT: 531 QTc: 565 Interpretive Statements Atrial fibrillation Ventricular premature complex Compared to ECG 01/01/2021 15:30:03 Ventricular premature complex(es) now present Electronically Signed On 01-06-2021 8:04:49 SUBSTATION MECHANIC by Mandeep De Oliveira [email or web address] <ELECTRONICALLY SIGNED> By: Mandeep De Oliveira MD, [facility] 01/06/21 0804 Mandeep De Oliveira MD, FACC /EPI
--- NOTE | 2021-01-06 08:05 | EKG ---
[address] [address] ELECTROCARDIOGRAM REPORT Name: LEYDA DUVALL Room #: 207-P ADM IN M.R.#: [id number] Admission: 01/01/21 Attend Phys: Óscar Cornell MD Discharge: Date of : 47 Report #: [id number] [facility] Test Date: 2021-01-06 Test Time: 00:28:33 Pat Name: LEYDA DUVALL Department: Room: 207 P Gender: M Nursing Unit Manager: Jannette : 1945 Requested By: Donny Buckley Order Number: [id number] MD: Mandeep De Oliveira Measurements Intervals [place] Rate: 53 P: LA: QRS: -46 QRSD: 85 T: 3 QT: 544 QTc: 511 Interpretive Statements Atrial fibrillation Inferior infarct, age indeterminate Baseline wander in lead(s) III Compared to ECG 01/06/2021 00:23:17 Ventricular premature complex(es) no longer present Prolonged QT interval no longer present Myocardial infarct finding still present Electronically Signed On 01-06-2021 8:04:53 WASH OIL PUMP OPERATOR by Mandeep De Oliveira [email or web address] <ELECTRONICALLY SIGNED> By: Mandeep De Oliveira MD, FACC 01/06/21 0804 0028 0028 Mandeep De Oliveira MD, [facility] /EPI
[2021-01-06 08:16] VITALS: BP 121/80
--- NOTE | 2021-01-06 10:48 | NUR ---
Nutrition: Consider starting Clinimix PPN at 80 mL/hr to supplement nutrition til POC determined. Pt with hx severe malnutrition and eating little. Niece had voiced to RD did not desire a feeding tube.
[2021-01-06 12:10] VITALS: BP 127/79
[2021-01-06 15:25] VITALS: BP 106/73
--- NOTE | 2021-01-06 18:44 | NUR ---
PATIENT IS A/OX1-2 WITH CONFUSION NOTED. VSS AFEBRILE HR RUNNING 60-70s. C/O PAIN GENERALIZED ON RIGHT SIDE. PRN PERCOCET GIVEN AND EFFECTIVE. ENCOURAGED PATIENT TO SIT UP IN RECLINER AND ENCOURAGE APPETITE. PATIENT HAS A VERY POOR APPETITE. PATIENT REFUSED THERAPY THIS MORNING. FAMILY CALLED FOR AND UPDATE ON PATIENTS STATUS/ TEST RESULTS. UPDATE GIVEN. WILL CONTINUE WITH POC
[2021-01-06 20:02] VITALS: BP 117/79
--- NOTE | 2021-01-07 04:18 | NUR ---
RECEIVED PATIENT AT 1900H.ASSESSMENT DONE CHARTED.MEDICATION GIVEN PER APR.HAD COMPLAINTS OF RIGHT BACK PAIN, INFOREMD GREEN BUILDING ENGINEER, PRN TYLENOL GIVEN ORDERED.ALL NEEDS ATTENDED.TO CONTINOUSLY MONITOR.
[2021-01-07 04:47] VITALS: BP 120/73
[2021-01-07 04:51] LABS: CALCIUM 8.9 mg/dL (8.5-10.1); CREATININE 1.3 mg/dL (0.7-1.3)
[2021-01-07 05:28] LABS: HEMATOCRIT 36.8 % (42.0-52.0); HEMOGLOBIN 11.5 gm/dL (14.0-18.0); MCH 29.7 pg (26.0-34.0); MCHC 31.3 g/dL (28.0-37.0); MCV 95.1 fL (80.0-100.0); RBC 3.87 mil/uL (4.50-6.00); WBC 10.5 thou/uL (4.0-11.0)
[2021-01-07 07:30] VITALS: BP 100/62
[2021-01-07 11:32] VITALS: BP 120/75
[2021-01-07 16:26] VITALS: BP 111/79
--- NOTE | 2021-01-07 17:01 | NUR ---
Pt has been accepted for readmission to [facility] should he be dc ready this weekend. Please call their main number [phone] to coordinate and fax dc instructions and summary to [phone]. A chart copy and orders will need to be sent with the pt and his notified of dc timeframe. Should the facility not be able to provide transport, the unit rn can call [facility] for a w/c van ride [phone].
[2021-01-07 19:36] VITALS: BP 120/69
--- NOTE | 2021-01-07 22:06 | NUR ---
PT UP IN BED, SLEEPY, WHEN WAKEN C/O PAIN, PRN MED GIVEN, DR BELLA WAS CONTACTED FOR ADDITIONAL PAIN MEDS, AT THIS TIME DUE TO PT LOC, PAIN MEDS WERE HELD, PT REPOSITIONED, PT ENCOURAGED TO EAT, REFUSED MOST TRAY ITEMS, PT DECLINED PT TODAY. CALL LIGHT WITH IN REACH, USES CALL LIGHT TO CONTACT STAFF.
--- NOTE | 2021-01-08 04:27 | NUR ---
RECIEVED PATIENT AT 1900H.ASSESSMENT DONE CHARTED.MEDS GIVEN PER APR. HAD COMPLAINTS OF BACK PAIN, PRN PAIN MEDS GIVEN.ALL NEEDS ATTENDED.TO CONTINOUSLY MONITOR.
[2021-01-08 04:41] VITALS: BP 136/90
[2021-01-08 04:50] LABS: CALCIUM 9.2 mg/dL (8.5-10.1); CREATININE 1.2 mg/dL (0.7-1.3); POTASSIUM 3.4 mmol/L (3.5-5.1)
[2021-01-08 04:51] LABS: HEMATOCRIT 40.3 % (42.0-52.0); HEMOGLOBIN 12.8 gm/dL (14.0-18.0); MCH 30.1 pg (26.0-34.0); MCHC 31.8 g/dL (28.0-37.0); MCV 94.8 fL (80.0-100.0); RBC 4.25 mil/uL (4.50-6.00); RDW 15.2 % (10.5-14.5); WBC 11.8 thou/uL (4.0-11.0)
[2021-01-08 08:00] VITALS: BP 106/75
[2021-01-08 11:55] VITALS: BP 123/77; BP 135/83
--- NOTE | 2021-01-08 17:53 | NUR ---
ASSESSMENT CHARTED - PT NOT OREINTED TO ANYTHNG BUT HIMSELF. CONTINUE TO REFUSE TO EAT VERY MUCH - STATED HE DOES NOT LIKE THE FOOD. UP TO THE BATHROOM - HAS DIARRHEA AT TIME - UNABLE TO SEND URINE DUE TO DIARRHEA STOOL. PT UP TO THE CHAIR THIS AM - CHEST XRAY -VE. PT HAS BEEN GIVEN TYLENOL X 2 DOSES REQUESTED - PT SLEEPING POST ADMINISTRATION. PT GABRIEL SPEND ALOT OF THE DAY SLEEPING - NO CO'S AT THE PRESENT TIME.
[2021-01-08 20:00] VITALS: BP 141/62
[2021-01-09 03:58] LABS: CALCIUM 9.1 mg/dL (8.5-10.1); CREATININE 1.2 mg/dL (0.7-1.3)
[2021-01-09 04:14] LABS: HEMATOCRIT 37.6 % (42.0-52.0); HEMOGLOBIN 12.1 gm/dL (14.0-18.0); MCH 30.5 pg (26.0-34.0); MCHC 32.1 g/dL (28.0-37.0); RBC 3.95 mil/uL (4.50-6.00); RDW 15.2 % (10.5-14.5); WBC 10.4 thou/uL (4.0-11.0)
--- NOTE | 2021-01-09 05:07 | NUR ---
PT IS ORIENTED TO SELF BUT FORGETFULL. PT HAS A BRUISE ON RIGHT EYE DUE TO HIS FALL. USES WALKER AND NURSING ASSISTANCE TO USE THE BATHROOM STEADY ON FEET. COMPLAINS OF GENERAL PAIN TYLNOL GIVEN FOR DISCOMFORT. RESTING AFTER INTERVENTION. CALLL LIGHT WITHIN REACH IF NEEDS ASSSITANCE PER NURSING
[2021-01-09 08:00] VITALS: BP 121/55
[2021-01-09 11:30] VITALS: BP 89/60
[2021-01-09 15:52] LABS: URINE BILIRUBIN NEGATIVE (Negative); URINE BLOOD 1+ (Negative); URINE CLARITY SL CLOUDY; URINE COLOR YELLOW; URINE GLUCOSE-RANDOM* NEGATIVE (Negative); URINE KETONES TRACE (Negative); URINE PROTEIN (DIPSTICK) 2+ (Negative); URINE SPECIFIC GRAVITY 1.025 (1.005-1.035); URINE UROBILINOGEN 0.2 E.U./dl (0.2-1.0)
[2021-01-09 15:53] LABS: URINE LEUKOCYTES-REFLEX 1+ (Negative); URINE NITRITE-REFLEX POSITIVE (Negative)
[2021-01-09 16:04] LABS: HYALINE CASTS 0-3 Few /LPF (None Seen)
[2021-01-09 16:05] LABS: BACTERIA-REFLEX >30 Many /HPF (None Seen); URINE RBC 1-2 Rare /HPF (NONE SEEN)
[2021-01-09 16:06] LABS: CRYSTALS None Seen /LPF (None Seen)
[2021-01-09 16:16] LABS: SQUAMOUS 0-3 Few /LPF (0-3)
--- NOTE | 2021-01-09 17:03 | NUR ---
ASSESSMENT CHARTED - MEDS PER APR - GIVEN TYLENOL X 2 DOSES FOR CO'S OF GENERALIZED PAIN - PT SLEEPING POST ADMINISTRATION. PT VERY SLEEPY AND NOT COVERSIVE THIS AM. HAD PT UP TO THE BATHROOM AND WAS TALKING WITH HIM ABOUT WHY HE I NOT EATING - HE STATED THAT HE DOES NOT LIKE THE FOOD WITH THE EASONING PACKETS - HE WOULD LIKE A LITTLE SALT ON HIS FOOD - LUNCH TRAY CAME AND HAD MASHED POTATOES ROAST BEEF ON IT - I PLACED 1 PKT OF SALT ON IT AND HE ATE APPROX 25% OF HIS LUNCH. SPOKE WITH DR BELLA AND HE CHANGED DIET TO REG BUT LIMIT SALT MUCH POSSIBLE. WENT THROUGH MENU WITH PATIENT AND WE ORDERED DINNER FOR HIM AND HE HAS EATEN 100% OF MEAL. PT MUCH MORE CONVERSIVE THIS AFTERNOON AND EVENING - STAYING AWAKE FOR PERIODS OF TIME. COULDNOT / WOULD NOT ANSWER ORIENTATION QUESTIONS THIS AM - HAS ANSERED ALL CORRECTLY THIS AFTERNOON. REQUESTED A COMB FOR HIS HAIR AND HAS BEEN VERY POLITE AND TALKATIVE WITH ME. K+ 3 - THIS AM - DR SANDY GAONA PROTOCOL - PT RECIEVING K+ AND MG REPLACMENT AT THE PRESENT TIME. APPEARS TO BE COMFORTABLE AT THE PRESENT TIME WITH NO CO'S.
[2021-01-09 19:49] VITALS: BP 103/67
[2021-01-09 23:23] LABS: MAGNESIUM 1.7 mg/dL (1.8-2.4)
[2021-01-10 04:12] VITALS: BP 99/62
--- NOTE | 2021-01-10 04:44 | NUR ---
RECEIVED PATIENT AT 1900H.ASSESSMENT DONE CHARTED.MEDS PER APR.RELAYED URINALYSIS RESULT WITH PROJECTOR OPERATOR, CARRIED OUT ORDERS.ALL NEEDS ATTENDED.TO CONTINOUSLY MONITOR.
[2021-01-10 08:00] VITALS: BP 100/68
[2021-01-10 12:00] VITALS: BP 104/71
[2021-01-10] MEDS ORDERED: CEPHALEXIN500 MG PO (13:52)
[2021-01-10] MEDS ORDERED: IRON325 PO (13:53)
[2021-01-10] MEDS ORDERED: METOPROLOL SUCC50 MG PO (13:54)
--- NOTE | 2021-01-10 16:20 | NUR ---
Patient to dc to [facility]. sp with Meena in admissions she arranged wc van for 1700. Chart copied, orders faxed. Notified dtr of dc and timeframe.
--- NOTE | 2021-01-10 16:56 | NUR ---
Report called to O[facility] bhagat. Report called to ANDREW Zhao. Patient's daughter Ruth Coburn was called and notified about patient being transfered to [facility] this evening. Pt alert and oriented X4. pt standby assist to bathroom with walker.
[2021-01-10 17:00] VITALS: BP 110/66
== END 2021-01-10 18:55 | DRG 308 ==
LOC: ER 15:10 → EROBS 17:32 → 2N 17:32
PROVIDERS: Hospitalist; Nurse Practitioner; ADMIT Internal Medicine; ATTEND Internal Medicine
DX: I48.91 Unspecified atrial fibrillation (principal); E43 Unspecified severe protein-calorie malnutrition; G92.9 Unspecified toxic encephalopathy; R77.8 Other specified abnormalities of plasma proteins; E78.00 Pure hypercholesterolemia, unspecified; I10 Essential (primary) hypertension; K21.9 Gastro-esophageal reflux disease without esophagitis; G89.29 Other chronic pain; M54.9 Dorsalgia, unspecified; E78.5 Hyperlipidemia, unspecified; Z96.641 Presence of right artificial hip joint; F17.210 Nicotine dependence, cigarettes, uncomplicated; E87.6 Hypokalemia; E83.42 Hypomagnesemia; D50.9 Iron deficiency anemia, unspecified; R53.81 Other malaise; R63.4 Abnormal weight loss; N40.0 Benign prostatic hyperplasia without lower urinary tract symptoms; R41.0 Disorientation, unspecified; F32.9 Major depressive disorder, single episode, unspecified; Z79.01 Long term (current) use of anticoagulants; Z87.81 Personal history of (healed) traumatic fracture; Z68.26 Body mass index [BMI] 26.0-26.9, adult; Z28.21 Immunization not carried out because of patient refusal; Z20.822 Contact with and (suspected) exposure to COVID-19
CPT/HCPCS: 10081